=== PATIENT | male | born 1965 | race Two or more races ===

== ENCOUNTER 2024-11-13 10:18 | Emergency (ER) | payer OTHER ==
[~2024-11-13] VITALS: Ht 167.6 cm; Wt 83.8 kg
--- NOTE | 2024-11-13 10:38 | ECG ---
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
--- NOTE | 2024-11-13 11:11 | ED.PDOC ---
History of Present Illness HPI Comments 59-year-old male presents to the ER with prior medical history of stents, TIA, kidney stones, mi, fistula dialysis: Surgical history of back surgery, shoulder surgery, bilateral knee surgery and the chief complaint of generalized weakness. Patient reports on having dialysis 5 times a week and recently noticed that his abscess is very high and feels like it is going to pop. Patient states the after yesterday's dialysis treatment he felt very dizzy and informed his stitch welder for which was prescribed antibiotics. Patient did take the antibiotics yesterday states on on getting any better. Denies chills, fever, N/V/D, SOB, CP. No other associated symptoms, modifiers, recent injuries or sick contacts present at this time. Chief Complaint: General Weakness Time Seen by MD: 11:05 Reviewed Notes: Nurses Notes, Medications, Allergies Allergies: Coded Allergies: Iodine (Verified Allergy, Unknown, 11/13/24) Information Source: Patient Mode of Arrival: Ambulatory Severity: Moderate Timing: Hours Duration: Since onset, Hours Prehospital treatment: None Past Medical History PAST MEDICAL HISTORY: Kidney Stones, [place], TIA Past Medical History (Other): Stent placed Surgical History (Other): Back surgery, shoulder surgery, bilateral knee surgery Family History Family History: Reviewed,noncontributory to illness, Unknown Social History Smoker: Non-Smoker Alcohol: Denies ETOH Use Drugs: Denies Drug Use Lives In: Home Constitutional: reports: weakness; denies: chills, diaphoresis, fatigue, fever, malaise, sweats, others EENTM: denies: blurred vision, double vision, ear bleeding, ear discharge, ear drainage, ear pain, ear ringing, eye pain, eye redness, hearing loss, mouth pain, mouth swelling, nasal discharge, nose bleeding, nose congestion, nose pain, photophobia, tearing, throat pain, throat swelling, voice changes, others Respiratory: denies: cough, hemoptysis, orthopnea, SOB at rest, shortness of breath, SOB with excertion, stridor, wheezing, others Cardiovascular: denies: chest pain, dizzy spells, diaphoresis, Dyspnea on exertion, edema, irregular heart beat, left arm pain, lightheadedness, palpitations, PND, syncope, others Gastrointestinal: denies: abdomen distended, abdominal pain, blood streaked bowels, constipated, diarrhea, dysphagia, difficulty swallowing, hematemesis, melena, nausea, poor appetite, poor fluid intake, rectal bleeding, rectal pain, vomiting, others Genitourinary: denies: burning, dysuria, flank pain, frequency, hematuria, incontinence, penile discharge, penile sore, pain, testicle pain, testicle swelling, urgency, others Neurological: reports: dizziness; denies: fainting, headache, left sided numbness, left sided weakness, numbness, paresthesia, pre-existing deficit, right sided numbness, right sided weakness, seizure, speech problems, tingling, tremors, weakness, others Musculoskeletal: denies: back pain, gout, joint pain, joint swelling, muscle pain, muscle stiffness, neck pain, others Integumetry: denies: bruises, change in color, change in hair/nails, dryness, laceration, lesions, lumps, rash, wounds, others Allergic/Immunocompromised: denies: Difficulty Healing, Frequent Infections, Hives, Itching, others Hematologic/Lymphatic: denies: anemia, blood clots, easy bleeding, easy bruising, swollen glands, others Endocrine: denies: excessive hunger, excessive sweating, excessive thirst, excessive urination, flushing, intolerance to cold, intolerance to heat, unexplained weight gain, unexplained weight loss, others Psychiatric: denies: anxiety, bipolar disorder, depression, hopeless, panic disorder, schizophrenia, sleepless, suicidal, others All Other Systems: Reviewed and Negative Physical Exam General Appearance: No Apparent Distress, Normal HEENT: Normal ENT Inspection, Pharynx Normal, TMs Normal Neck: Full Range of Motion, Non-Tender, Normal, Normal Inspection Respiratory: Chest Non-Tender, Lungs Clear, No Accessory Muscle Use, No Respiratory Distress, Normal Breath Sounds Cardiovascular: No Edema, No JVD, No Murmur, No Gallop, Normal Peripheral Pulses, Regular Rate/Rhythm Breast Exam: Deferred Gastrointestinal: No Organomegaly, Non Tender, No Pulsatile Mass, Normal Bowel Sounds, Soft Genitalia: Deferred Pelvic: Deferred Rectal: Deferred Extremities: No calf tenderness, Normal capillary refill, Normal inspection, Normal range of motion, Non-tender, No pedal edema Musculoskeletal : Apperance: Normal Neurologic: Alert, 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 Was a procedure done?: No EKG EKG : Pulse Rate (adult): 70 [place]: Normal Cardiac Rhythm: NSR Block: None Hypertrophy: None ST: Normal Differential Dx Considerations may include: AV fistula problem X-Ray, Labs, Meds, VS Vital Signs Date Time Temp Pulse Resp B/P (MAP) Pulse Ox O2 Delivery O2 Flow Rate FiO2 11/13/24 11:11 70 11/13/24 10:20 98.5 83 16 148/88 98 98.5 Lab Test 11/13/24 11:01 Range/Units White Blood Count 5.3 4.4-10.8 10^3/uL Red Blood Count 3.76 L 4.5-5.90 10^6/uL Hemoglobin 12.0 L 13.5-17.5 g/dL Hematocrit 35.5 L 41.0-53.0 % Mean Corpuscular Volume 94.3 80.0-100.0 fL Mean Corpuscular Hemoglobin 31.9 28.0-32.0 pg Mean Corpuscular Hemoglobin Concent 33.8 32.0-36.0 g/dL Red Cell Distribution Width 13.5 11.8-14.3 % Platelet Count 231 140-450 10^3/uL Mean Platelet Volume 7.4 6.9-10.8 fL Neutrophils (%) (Auto) 70.2 37.0-80.0 % Lymphocytes (%) (Auto) 15.5 10.0-50.0 % Monocytes (%) (Auto) 9.1 0.0-12.0 % Eosinophils (%) (Auto) 4.4 0.0-7.0 % Basophils (%) (Auto) 0.8 0.0-2.0 % Neutrophils # (Auto) 3.8 1.6-8.6 10 ^3/uL Lymphocytes # (Auto) 0.8 0.4-5.4 10 ^3/uL Monocytes # (Auto) 0.5 0-1.3 10 ^3/uL Eosinophils # (Auto) 0.2 0-0.8 10 ^3/uL Basophils # (Auto) 0 0-0.2 10 ^3/uL Nucleated Red Blood Cells 0.0 % Sodium Level 136 136-145 mmol/L Potassium Level 4.0 3.5-5.1 mmol/L Chloride Level 95 L 98-107 mmol/L Carbon Dioxide Level 27 20-31 mmol/L Anion Gap 14 5-15 Blood Urea Nitrogen 54 H 9-23 mg/dL Creatinine 9.39 H 0.700-1.30 mg/dL Glomerular Filtration Rate Calc 6 >90 mL/min BUN/Creatinine Ratio 5.8 L 10.0-20.0 Serum Glucose 115 H 74-106 mg/dL Calcium Level 8.5 L 8.7-10.4 mg/dL Troponin I High Sensitivity 22 </=54 ng/L Time of 1ST Reevaluation: 11:35 Reevaluation 1ST: Unchanged Patient Education/Counseling: Diagnosis, Treatment, Prognosis Family Education/Counseling: Diagnosis, Treatment, Prognosis SEPSIS Sepsis Screen Date sepsis recognized/suspect: Nov 13, 2024 Time Sepsis recognized/suspect: 102 Recent Procedure: No On Antibiotic Therapy: Yes (STARTED YESTERDAY) Respiratory Rate >20: No Heart Rate >90: No Temp<36 C (96.8 F) or >38.3 C: No SBP <90 or MAP <65 mmHG: No New Acute Mental Status Change: No Is the patient on CPAP, BIPAP,: No Physician Orders Urinalysis (11/13/24 10:36) Chest Portable (11/13/24 10:36) Troponin-I Hs (11/13/24 11:36) Troponin-I Hs (11/13/24 13:36) Electrocardigram (11/13/24 11:36) Electrocardigram (11/13/24 13:36) Vital Signs Date Time Temp Pulse Resp B/P (MAP) Pulse Ox O2 Delivery O2 Flow Rate FiO2 11/13/24 11:11 70 11/13/24 10:20 98.5 83 16 148/88 98 98.5 Laboratory Tests Test 11/13/24 11:01 White Blood Count 5.3 10^3/uL (4.4-10.8) Departure 1 Departure Time of Disposition: 12:00 (Patient's metabolic disarray from not do dialysis secondary to AV fistula problem. We will admit patient for further workup and expert consultation.) Impression: Primary Impression: Dialysis AV fistula malfunction Qualified Codes: T82.590A - Other mechanical complication of surgically created arteriovenous fistula, initial encounter Additional Impressions: Near syncope Dizziness Disposition: ADMITTED INPATIENT Admit to: Med Surg Condition: Guarded Critical Care Note Critical Care Time?: No Stability Stability form required: No I personally scribed for OG UGALDE MD ([email or web address]) on 11/13/24 at 11:11. Electronically submitted by Ponce Bowman ([email or web address]). OG UGALDE MD Nov 13, 2024 11:11
[2024-11-13 11:19] LABS: Hematocrit 35.5 % (41.0-53.0); Hemoglobin 12.0 g/dL (13.5-17.5); Mean Corpuscular Hemoglobin 31.9 pg (28.0-32.0); Mean Corpuscular Volume 94.3 fL (80.0-100.0); Nucleated Red Blood Cells % 0.0 %
[2024-11-13 11:27] LABS: Potassium 4.0 mmol/L (3.5-5.1); Sodium 136 mmol/L (136-145)
--- NOTE | 2024-11-13 11:27 | DVH ---
INDICATION: weakness TECHNIQUE: Frontal view of the chest. COMPARISON: None FINDINGS: . The heart and mediastinal contours are grossly unremarkable. There is no evidence of pleural disea se. The lungs are clear. The bony structures of the chest are intact without fracture. IMPRESSION: 1. No evidence of acute disease.
[2024-11-13 11:28] LABS: Anion Gap 14 (5-15); Carbon Dioxide 27 mmol/L (20-31)
[2024-11-13 11:29] LABS: Calcium 8.5 mg/dL (8.7-10.4); Chloride 95 mmol/L (98-107)
[2024-11-13 11:33] LABS: BUN/Creatinine Ratio 5.8 (10.0-20.0)
[2024-11-13 11:35] LABS: Blood Urea Nitrogen 54 mg/dL (9-23); Glucose 115 mg/dL (74-106)
[2024-11-13 13:12] VITALS: PULSE 76; RESP 19; O2SAT 98
[2024-11-13 16:41] VITALS: BP 141/74; PULSE 62; RESP 18; TEMP 97.9; O2SAT 98
== END 2024-11-13 17:04 | disposition left against medical advice (07) ==
LOC: ER 10:18
DX: T82.590A Other mechanical complication of surgically created arteriovenous fistula, initial encounter (principal); R55 Syncope and collapse; I25.2 Old myocardial infarction; Z86.73 Personal history of transient ischemic attack (TIA), and cerebral infarction without residual deficits; Z87.442 Personal history of urinary calculi; Z88.8 Allergy status to other drugs, medicaments and biological substances; Y92.89 Other specified places as the place of occurrence of the external cause
CPT/HCPCS: 36415; 71045; 80048; 84484; 85025; 93005

== ENCOUNTER 2025-01-29 14:36 | Inpatient (IN) | payer MEDICARE, OTHER ==
[2025-01-29] VITALS (7 sets, daily range): BP systolic 170; BP diastolic 93; PULSE 70–83; RESP 14–20; TEMP 98; O2SAT 97–100
[~2025-01-29] VITALS: Ht 167.6 cm; Wt 83.8 kg
--- NOTE | 2025-01-29 14:48 | ECG ---
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
--- NOTE | 2025-01-29 15:21 | ED.PDOC ---
History of Present Illness HPI Comments 59 y/o M presents with c/c of intermittent shortness of breath x1 month. Significant history for DM, ESRD w/at-home dialysis 5x days/week, [place] - 2017, and TIA - 2011. Patient reports on-and-off difficulty breathing with no provoking factors. He reports on being short of breath, currently, and having associated nonradiating, midsternal chest discomfort, that he describes as a 'heartburn' sensation. Denies any extremity swelling, nausea, vomiting, cough, fever, or further acute symptoms. He mentions recent history of cold-symptoms 1x month ago, that has since resolved, with exception of lingering congestion. No endorsed further pertinent events or history. Time Seen by MD: 14:45 Reviewed Notes: Nurses Notes, Medications, Allergies Allergies: Coded Allergies: Iodine (Verified Allergy, Unknown, 11/13/24) Home Meds Reported Medications Lisinopril (Lisinopril) 20 Mg Tab, 1 TAB PO DAILY 01/29/25 Doxazosin Mesylate (Cardura Xl) 4 Mg Tab, 1 TAB PO DAILY 01/29/25 Tenapanor HCl (Xphozah) 30 Mg Tab, TAB PO 01/29/25 Doxazosin Mesylate (Doxazosin) 4 Mg Tab, 1 TAB PO DAILY 01/29/25 Sevelamer Carbonate (Sevelamer Carbonate) 800 Mg Tab, TAB PO 01/29/25 Buprenorphine (Buprenorphine) 10 Mcg/Hr Dis, 1 PATCH TOP QWEEKLY 01/29/25 Calcium Acetate (Phosphate Bin (Calcium Acetate) 667 Mg Cap, 1 CAP PO TID 01/29/25 Information Source: Patient Mode of Arrival: Ambulatory Severity: Moderate Timing: Weeks Duration: Intermittent Prehospital treatment: None Past Medical History PAST MEDICAL HISTORY: DM, ESRD (w/ESRD ), Kidney Stones, [place] (2017), TIA (2011) Surgical History (Other): left fistula back surgery with 11x screw placement Family History Family History: Reviewed,noncontributory to illness, Family hx of heart gail ([place]) Social History Smoker: Non-Smoker, Quit Greater Than 1 Year (2011) Alcohol: Denies ETOH Use Drugs: Denies Drug Use Lives In: Home Constitutional: denies: chills, diaphoresis, fatigue, fever, malaise, sweats, weakness, others EENTM: reports: nose congestion; denies: blurred vision, double vision, ear bleeding, ear discharge, ear drainage, ear pain, ear ringing, eye pain, eye redness, hearing loss, mouth pain, mouth swelling, nasal discharge, nose bleeding, nose pain, photophobia, tearing, throat pain, throat swelling, voice c hanges, others Respiratory: reports: shortness of breath; denies: cough, hemoptysis, orthopnea, SOB at rest, SOB with excertion, stridor, wheezing, others Cardiovascular: reports: chest pain; denies: dizzy spells, diaphoresis, Dyspnea on exertion, edema, irregular heart beat, left arm pain, lightheadedness, palpitations, PND, syncope, others Gastrointestinal: denies: abdomen distended, abdominal pain, blood streaked bowels, constipated, diarrhea, dysphagia, difficulty swallowing, hematemesis, melena, nausea, poor appetite, poor fluid intake, rectal bleeding, rectal pain, vomiting, others Genitourinary: denies: burning, dysuria, flank pain, frequency, hematuria, incontinence, penile discharge, penile sore, pain, testicle pain, testicle swelling, urgency, others Neurological: denies: dizziness, fainting, headache, left sided numbness, left sided weakness, numbness, paresthesia, pre-existing deficit, right sided numbness, right sided weakness, seizure, speech problems, tingling, tremors, weakness, others Musculoskeletal: denies: back pain, gout, joint pain, joint swelling, muscle pain, muscle stiffness, neck pain, others Integumetry: denies: bruises, change in color, change in hair/nails, dryness, laceration, lesions, lumps, rash, wounds, others Allergic/Immunocompromised: denies: Difficulty Healing, Frequent Infections, Hives, Itching, others Hematologic/Lymphatic: denies: anemia, blood clots, easy bleeding, easy bruising, swollen glands, others Endocrine: denies: excessive hunger, excessive sweating, excessive thirst, excessive urination, flushing, intolerance to cold, intolerance to heat, unexplained weight gain, unexplained weight loss, others Psychiatric: denies: anxiety, bipolar disorder, depression, hopeless, panic disorder, schizophrenia, sleepless, suicidal, others All Other Systems: Reviewed and Negative Physical Exam General Appearance: Moderate Distress HEENT: Pale [place] (L), Pale [place] (R), Pharynx Normal, TMs Normal Neck: Full Range of Motion, Non-Tender, Normal, Normal Inspection Respiratory: Chest Non-Tender, Lungs Clear, No Accessory Muscle Use, No Respiratory Distress, Normal Breath Sounds Cardiovascular: No Edema, No JVD, No Murmur, No Gallop, Normal Peripheral Pulses, Regular Rate/Rhythm Breast Exam: Deferred Gastrointestinal: No Organomegaly, Non Tender, No Pulsatile Mass, Normal Bowel Sounds, Soft Genitalia: Deferred Pelvic: Deferred Rectal: Deferred Extremities: No calf tenderness, Normal capillary refill, No pedal edema, Other (Left upper extremity with a fistula in place) Musculoskeletal : Apperance: Normal 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 Was a procedure done?: No EKG EKG : Pulse Rate (adult): 71 [place]: Normal Cardiac Rhythm: NSR Block: None Hypertrophy: LAE ST: Normal Differential Dx Considerations may include: AL, PE, URI, PNA, anxiety, viral, among others X-Ray, Labs, Meds, VS Vital Signs Date Time Temp Pulse Resp B/P (MAP) Pulse Ox O2 Delivery O2 Flow Rate FiO2 01/29/25 15:45 98.0 74 14 170/93 99 0.0 98.0 01/29/25 15:21 71 01/29/25 15:00 Room Air* 0 21 01/29/25 15:00 98.0 74 12 170/93 (118) 99 98.0 01/29/25 14:48 97.7 81 18 170/101 99 97.7 Lab Test 01/29/25 16:07 01/29/25 15:08 Range/Units Troponin I High Sensitivity Pending 27 </=54 ng/L White Blood Count 5.5 4.4-10.8 10^3/uL Red Blood Count 3.25 L 4.5-5.90 10^6/uL Hemoglobin 10.3 L 13.5-17.5 g/dL Hematocrit 30.3 L 41.0-53.0 % Mean Corpuscular Volume 93.3 80.0-100.0 fL Mean Corpuscular Hemoglobin 31.8 28.0-32.0 pg Mean Corpuscular Hemoglobin Concent 34.1 32.0-36.0 g/dL Red Cell Distribution Width 13.6 11.8-14.3 % Platelet Count 234 140-450 10^3/uL Mean Platelet Volume 8.2 6.9-10.8 fL Neutrophils (%) (Auto) 65.1 37.0-80.0 % Lymphocytes (%) (Auto) 18.1 10.0-50.0 % Monocytes (%) (Auto) 10.8 0.0-12.0 % Eosinophils (%) (Auto) 5.1 0.0-7.0 % Basophils (%) (Auto) 0.9 0.0-2.0 % Neutrophils # (Auto) 3.6 1.6-8.6 10 ^3/uL Lymphocytes # (Auto) 1.0 0.4-5.4 10 ^3/uL Monocytes # (Auto) 0.6 0-1.3 10 ^3/uL Eosinophils # (Auto) 0.3 0-0.8 10 ^3/uL Basophils # (Auto) 0.1 0-0.2 10 ^3/uL Nucleated Red Blood Cells 0.2 % D-Dimer, Quantitative 0.81 H 0.0-0.49 mg/L FEU Sodium Level 138 136-145 mmol/L Potassium Level 5.1 3.5-5.1 mmol/L Chloride Level 97 L 98-107 mmol/L Carbon Dioxide Level 29 20-31 mmol/L Anion Gap 12 5-15 Blood Urea Nitrogen 60 H 9-23 mg/dL Creatinine 9.37 H 0.700-1.30 mg/dL Glomerular Filtration Rate Calc 6 >90 mL/min BUN/Creatinine Ratio 6.4 L 10.0-20.0 Serum Glucose 96 74-106 mg/dL Hemoglobin A1c Pending Calcium Level 8.0 L 8.7-10.4 mg/dL Magnesium Level 2.5 1.6-2.6 mg/dL B-Type Natriuretic Peptide 294.09 0-100 pg/mL IV Hep-Lock was established The CBC shows anemia with a hemoglobin of 10.3 hematocrit of 30.3 The D-dimer is 0.81 The chemistry panel is within normal limits except for an elevated BUN of 60 and a creatinine of 9.37 The recommendation is that we get a V/Q scan in his patient because we can not get a CAT scan with IV contrast secondary to the patient's allergies to iodine as well as the patient's renal function The patient is being admitted at this time The chest x-ray shows: No sign of any abnormalities The patient is being admitted Images Reviewed?: Images reviewed and evaluated by me Time of 1ST Reevaluation: 15:15 Reevaluation 1ST: Unchanged Patient Education/Counseling: Diagnosis, Treatment, Prognosis Family Education/Counseling: No Family Present SEPSIS Sepsis Screen Physician Orders Electrocardigram (01/29/25 14:46) Electrocardigram (01/29/25 15:46) Electrocardigram (01/29/25 17:46) Chest Portable (01/29/25 14:48) Heplock Iv (01/29/25 14:48) Pulse Oximetry (01/29/25 14:48) Operating Room Aide (01/29/25 14:48) Blood Pressure (01/29/25 14:48) Troponin-I Hs (01/29/25 15:48) Troponin-I Hs (01/29/25 17:48) Urinalysis (01/29/25 15:38) Drug Screen (01/29/25 15:38) Albuterol Medneb (Ventolin Medneb) (01/29/25 18:00) Ipratropium Medneb (Atrovent Medneb) (01/29/25 18:00) Admit (01/29/25 15:41) Allergies (01/29/25 15:41) Code Status (01/29/25 15:41) Renal Standard(2gna,3gk,Lopho) (01/29/25 Dinner) Ondansetron Hcl (Zofran) (01/29/25 15:45) Complete Blood Count (01/30/25 04:00) Comprehensive Metabolic Panel (01/30/25 04:00) Acetaminophen Tablet (Tylenol Tablet) (01/29/25 15:45) Sequential Compression Device (01/29/25 ) Glucose Blood (Accu-Chek Comfort Curve T (01/29/25 17:00) Insulin R (Human) (Insulin R) (01/29/25 17:00) Dextrose 50% Syringe (01/29/25 15:45) Hemoglobin A1c (01/29/25 15:41) Hydralazine Injection (Apresoline Inject (01/29/25 15:45) Calcium Acetate Capsule (Phoslo Capsule) (01/29/25 22:00) (Nf) Buprenorphine (01/29/25 16:00) Doxazosin Mesyl Tablet (Cardura Tablet) (01/30/25 10:00) Sevelamer (Renagel) (01/29/25 18:00) Furosemide Injection (Lasix Injection) (01/30/25 10:00) Nm Vq Scan (01/29/25 15:56) Vital Signs Date Time Temp Pulse Resp B/P (MAP) Pulse Ox O2 Delivery O2 Flow Rate FiO2 01/29/25 15:45 98.0 74 14 170/93 99 0.0 98.0 01/29/25 15:21 71 01/29/25 15:00 Room Air* 0 21 01/29/25 15:00 98.0 74 12 170/93 (118) 99 98.0 01/29/25 14:48 97.7 81 18 170/101 99 97.7 Laboratory Tests Test 01/29/25 15:08 White Blood Count 5.5 10^3/uL (4.4-10.8) Departure 1 Departure Time of Disposition: 16:29 Impression: Primary Impression: Acute myocardial ischemia Disposition: 09 ADMITTED INPATIENT Admit to: [facility] Condition: Fair Critical Care Note Critical Care Time?: Yes (45 min-critical care time only) Stability Stability form required: Yes Unstable for transfer: Telemetry monitoring (Telemetry monitoring required), ED Physician Assesment (Clinical assesment) Heart Score Heart Score: Heart Score Response (Comments) Value History Moderate Suspicious 1 EKG Repolarization Disturb 1 Age 45-64 1 Risk Factors >3 or Hx ASHD 2 Troponin Normal limit 0 Total 5 I personally scribed for BALA VALDIVIA MD ([email or web address]) on 01/29/25 at 15:21. Electronically submitted by Heber Heaton ([email or web address]). BALA VALDIVIA MD Jan 29, 2025 15:21
--- NOTE | 2025-01-29 15:27 | DVH ---
CLINICAL INFORMATION: Shortness of breath. TECHNIQUE: Single AP portable chest radiograph was obtained. COMPARISON: XY CHEST PORTABLE on DOS: 11/13/24 FINDINGS: Lungs: Mild elevation of the right hemidiaphragm. Minimal atelectasis in the lung bases. No focal consolidation. No pneumothorax or pleural effusion. Cardiac: Heart size is within normal limits. Pulmonary vasculature: Unremarkable. Mediastinum/aaron: Unremarkable. Bones: No acute osseous abnormality identified. Other: Grossly stable appearance of the stimulator leads extending to the level of the midthoracic spine. IMPRESSION: No evidence of acute disease in the chest.
[2025-01-29 15:37] LABS: Hematocrit 30.3 % (41.0-53.0); Hemoglobin 10.3 g/dL (13.5-17.5); Mean Corpuscular Hemoglobin 31.8 pg (28.0-32.0); Mean Corpuscular Volume 93.3 fL (80.0-100.0); Nucleated Red Blood Cells % 0.2 %
[2025-01-29 15:44] LABS: Potassium 5.1 mmol/L (3.5-5.1); Sodium 138 mmol/L (136-145)
[2025-01-29 15:45] LABS: Anion Gap 12 (5-15); Carbon Dioxide 29 mmol/L (20-31)
[2025-01-29] MEDS ORDERED: ACETAMINOPHEN 325 MG TAB PO PRN ×2 (15:45→16:45)
[2025-01-29] MEDS ORDERED: DEXTROSE (50%) 50ML SYRG IV PRN ×2 (15:45→17:00)
[2025-01-29] MEDS ORDERED: hydrALAZINE HCL 20 MG/ML VL IV PRN (15:45)
[2025-01-29] MEDS ORDERED: ONDANSETRON HCL 4 MG/2 ML VIAL IV PRN ×2 (15:45→16:45)
[2025-01-29 15:50] LABS: BUN/Creatinine Ratio 6.4 (10.0-20.0); Glucose 96 mg/dL (74-106); Magnesium 2.5 mg/dL (1.6-2.6)
[2025-01-29 15:51] LABS: Blood Urea Nitrogen 60 mg/dL (9-23); Calcium 8.0 mg/dL (8.7-10.4); Chloride 97 mmol/L (98-107)
[2025-01-29] MEDS ORDERED: CALC667C PO (15:54)
[2025-01-29] MEDS ORDERED: LISI20TA56 PO (15:54)
[2025-01-29] MEDS ORDERED: TENA30TA PO (15:54)
[2025-01-29] MEDS ORDERED: SEVE800T10 PO (15:54)
[2025-01-29] MEDS ORDERED: BUPR10DI TOP (15:54)
[2025-01-29] MEDS ORDERED: DOXA1TAB41 PO (15:54)
[2025-01-29] MEDS ORDERED: DOXA4TAB PO (15:54)
[2025-01-29] MEDS ORDERED: NITROGLYCERIN 0.4 MG SL TAB SL PRN (16:45)
[2025-01-29] MEDS: ENOXAPARIN SOD 40 MG/0.4 ML SYRINGE SC SCH (17:00)
[2025-01-29] MEDS ORDERED: ACCU-CHEK COMFORT CURVE STRIP VI SCH (17:00)
[2025-01-29] MEDS: InsuLIN REG 1unit/0.01ml Soln (100units/ml) SC SCH (17:00)
[2025-01-29] MEDS ORDERED: InsuLIN REG 1unit/0.01ml Soln (100units/ml) SC SCH (17:00)
[2025-01-29] MEDS: ACCU-CHEK COMFORT CURVE STRIP VI SCH (17:10)
--- NOTE | 2025-01-29 17:13 | DVHHP2 ---
History of Present Illness Reason for Visit: Chest pain with shortness of breath History of Present Illness Jeromy Person is a 59-year-old male with past medical history of diabetes, end- stage renal disease on dialysis, nephrolithiasis, MS, TIA, left AV fistula, back surgery, and neuro stimulator who presents to the ED with chest pain and shortness of breath x1 month. Patient reports that the chest pain is 8/10 feels like a truck is running over his chest and intermittent in nature. He reports that there are no triggering or alleviating factors. He also reports that his demo coordinator is Dr. Collier in [place] and PCP was seen [address] Pavon in [place]. Patient is also reports that he saw a size mixer 2 months ago for itchiness on his forehead and notes that there has been red dots on his right hand lateral palm side as well as right big toe. He reports that the size mixer told him that it may be endocarditis and to get a checkup in the hospital. He reports that his size mixer and given him some cream with no relief. Patient reports that he also used a device to scrape off the skin on his right hand. Patient reports that his shortness of breath has been ongoing for the last month while at rest. 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 He reports that he was living in [place] for 24 years and moved over to [facility] for 1 year and now lives in [place] since July. Patient reports that he uses a front wheel walker to ambulate and lives at home with his fiancee. Patient also reports that he is compliant with his edications. Patient also reports that he has a neurostimulator and it needs to be turned off with a remote if MRI is required. Patient also reports that his labs were abnormal, reports it was his phos. Patient denies any recent trauma or injury, recent sick contacts, recent travels, recent ingestion of spoiled food, fever, chills, lightheadedness, weakness, dizziness, abdominal pain, nausea, vomiting, diarrhea, or urinary symptoms. 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 Dad from MS.) Smoke: No ALCOHOL: none Drugs: None Lives: with Family Domestic Violence: Neg Review of Systems Respiratory: Shortness of breath Cardiovascular: Chest Pain Allergies: Coded Allergies: Iodine (Verified Allergy, Unknown, 11/13/24) Medications Current Medications Medications Dose Ordered Sig/Leah Route Start Time Stop Time Status Last Admin Dose Admin Albuterol 2.5 mg Q4HWA NEB 01/29/25 18:00 Ipratropium [place] 0.5 mg Q4HWA NEB 01/29/25 18:00 Ondansetron HCl 4 mg Q4HP PRN IV 01/29/25 15:45 Acetaminophen 650 mg Q6HP PRN PO 01/29/25 15:45 Diagnostic Test (Pha) 1 strip ACHS 01/29/25 17:00 Insulin Human Regular ACHS SC 01/29/25 17:00 Dextrose 50 ml UD PRN IV 01/29/25 15:45 Hydralazine HCl 10 mg Q6HP PRN IV 01/29/25 15:45 Calcium Acetate 667 mg TID PO 01/29/25 22:00 Patient Own Medication 1 patch QWEEKLY TOP 01/29/25 16:00 Doxazosin Mesylate 4 mg DAILY PO 01/30/25 10:00 Sevelamer HCl 800 mg TIDWM PO 01/29/25 18:00 Furosemide 40 mg DAILY IV 01/30/25 10:00 Exam Vital Signs Vital Signs Date Time Temp Pulse Resp B/P (MAP) Pulse Ox O2 Delivery O2 Flow Rate FiO2 01/29/25 15:45 98.0 74 14 170/93 99 0.0 98.0 01/29/25 15:00 Room Air* 21 General Appearance: Alert, Oriented X3, Cooperative, No acute distress HEENT: Atraumatic, PERRLA, EOMI, Mucous membr. moist/pink Respiratory: Normal air movement Cardiovascular: Regular rate, Normal S1, Normal S2 Abdominal: Normal bowel sounds, Soft Extremities: No clubbing, No cyanosis, No edema Neuro: Normal speech, Strength at 5/5 X4 ext, Normal tone, Sensation intact Psych/Mental Status: Mental status NL, Mood NL Labs/Xrays Labs Test 01/29/25 16:07 01/29/25 15:08 Range/Units White Blood Count 5.5 4.4-10.8 10^3/uL Red Blood Count 3.25 L 4.5-5.90 10^6/uL Hemoglobin 10.3 L 13.5-17.5 g/dL Hematocrit 30.3 L 41.0-53.0 % Mean Corpuscular Volume 93.3 80.0-100.0 fL Mean Corpuscular Hemoglobin 31.8 28.0-32.0 pg Mean Corpuscular Hemoglobin Concent 34.1 32.0-36.0 g/dL Red Cell Distribution Width 13.6 11.8-14.3 % Platelet Count 234 140-450 10^3/uL Mean Platelet Volume 8.2 6.9-10.8 fL Neutrophils (%) (Auto) 65.1 37.0-80.0 % Lymphocytes (%) (Auto) 18.1 10.0-50.0 % Monocytes (%) (Auto) 10.8 0.0-12.0 % Eosinophils (%) (Auto) 5.1 0.0-7.0 % Basophils (%) (Auto) 0.9 0.0-2.0 % Neutrophils # (Auto) 3.6 1.6-8.6 10 ^3/uL Lymphocytes # (Auto) 1.0 0.4-5.4 10 ^3/uL Monocytes # (Auto) 0.6 0-1.3 10 ^3/uL Eosinophils # (Auto) 0.3 0-0.8 10 ^3/uL Basophils # (Auto) 0.1 0-0.2 10 ^3/uL Nucleated Red Blood Cells 0.2 % D-Dimer, Quantitative 0.81 H 0.0-0.49 mg/L FEU Sodium Level 138 136-145 mmol/L Potassium Level 5.1 3.5-5.1 mmol/L Chloride Level 97 L 98-107 mmol/L Carbon Dioxide Level 29 20-31 mmol/L Anion Gap 12 5-15 Blood Urea Nitrogen 60 H 9-23 mg/dL Creatinine 9.37 H 0.700-1.30 mg/dL Glomerular Filtration Rate Calc 6 >90 mL/min BUN/Creatinine Ratio 6.4 L 10.0-20.0 Serum Glucose 96 74-106 mg/dL Hemoglobin A1c 5.3 <5.7 % A1C Calcium Level 8.0 L 8.7-10.4 mg/dL Magnesium Level 2.5 1.6-2.6 mg/dL B-Type Natriuretic Peptide 294.09 0-100 pg/mL CLINICAL INFORMATION: Shortness of breath. TECHNIQUE: Single AP portable chest radiograph was obtained. COMPARISON: XY CHEST PORTABLE on DOS: 11/13/24 FINDINGS: Lungs: Mild elevation of the right hemidiaphragm. Minimal atelectasis in the lung bases. No focal consolidation. No pneumothorax or pleural effusion. Cardiac: Heart size is within normal limits. Pulmonary vasculature: Unremarkable. Mediastinum/aaron: Unremarkable. Bones: No acute osseous abnormality identified. Other: Grossly stable appearance of the stimulator leads extending to the level of the midthoracic spine. IMPRESSION: No evidence of acute disease in the chest. SEPSIS Sepsis Screen Date sepsis recognized/suspect: Jan 29, 2025 Time Sepsis recognized/suspect: 1447 Recent Procedure: No On Antibiotic Therapy: No Respiratory Rate >20: No Heart Rate >90: No Temp<36 C (96.8 F) or >38.3 C: No SBP <90 or MAP <65 mmHG: No New Acute Mental Status Change: No Is the patient on CPAP, BIPAP,: No Physician Orders Electrocardigram (01/29/25 14:46) Electrocardigram (01/29/25 15:46) Electrocardigram (01/29/25 17:46) Chest Portable (01/29/25 14:48) Heplock Iv (01/29/25 14:48) Pulse Oximetry (01/29/25 14:48) Sewer Separation Designer (01/29/25 14:48) Blood Pressure (01/29/25 14:48) Troponin-I Hs (01/29/25 15:48) Troponin-I Hs (01/29/25 17:48) Urinalysis (01/29/25 15:38) Drug Screen (01/29/25 15:38) Albuterol Medneb (Ventolin Medneb) (01/29/25 18:00) Ipratropium Medneb (Atrovent Medneb) (01/29/25 18:00) Admit (01/29/25 15:41) Allergies (01/29/25 15:41) Code Status (01/29/25 15:41) Renal Standard(2gna,3gk,Lopho) (01/29/25 Dinner) Ondansetron Hcl (Zofran) (01/29/25 15:45) Complete Blood Count (01/30/25 04:00) Comprehensive Metabolic Panel (01/30/25 04:00) Acetaminophen Tablet (Tylenol Tablet) (01/29/25 15:45) Sequential Compression Device (01/29/25 ) Glucose Blood (Accu-Chek Comfort Curve T (01/29/25 17:00) Insulin R (Human) (Insulin R) (01/29/25 17:00) Dextrose 50% Syringe (01/29/25 15:45) Hydralazine Injection (Apresoline Inject (01/29/25 15:45) Calcium Acetate Capsule (Phoslo Capsule) (01/29/25 22:00) (Nf) Buprenorphine (01/29/25 16:00) Doxazosin Mesyl Tablet (Cardura Tablet) (01/30/25 10:00) Sevelamer (Renagel) (01/29/25 18:00) Furosemide Injection (Lasix Injection) (01/30/25 10:00) Nm Vq Scan (01/29/25 15:56) Vital Signs Date Time Temp Pulse Resp B/P (MAP) Pulse Ox O2 Delivery O2 Flow Rate FiO2 01/29/25 15:45 98.0 74 14 170/93 99 0.0 98.0 01/29/25 15:21 71 01/29/25 15:00 Room Air* 0 21 01/29/25 15:00 98.0 74 12 170/93 (118) 99 98.0 01/29/25 14:48 97.7 81 18 170/101 99 97.7 Laboratory Tests Test 01/29/25 15:08 White Blood Count 5.5 10^3/uL (4.4-10.8) Assessment/Plan Assessment/Plan Assessment Chest pain rule out ACS ? Endocarditis Fluid overload causing dyspnea Skin lesion on right big toe and right lateral hand History of neurostimulator History of diabetes History of end-stage renal disease on dialysis History of nephrolithiasis History of MS in 2018 History of TIA in 2012 History of left AV fistula History of back surgery with 11 screws Plan Admit to tele Antiemetics Pain management Aspirin + statin D-dimer Trop Chest x-ray BNP Diurese EKG Mag level Phos level ACS workup UA UDS Lipid panel Free T4 TSH Echo ordered Hemoglobin A1c ISS and Accu-Cheks Lactic Blood cultures Duo nebs V/Q scan Diet Home medications reconciled DVT prophylaxis-Lovenox PUD prophylaxis-not indicated no history of GERD or GI bleed Discussed plan of care with patient, patient's spouse, and nurse Wound consult Nephrology consult Cardiology consult [id number] Preventive counseling healthy eating habits, physical activity, and regular checkups Plan discussed with: Patient My Orders Orders - BING LOVE Procedure Category Date Status Time Urinalysis LAB 01/29/25 Logged 15:38 Drug Screen LAB 01/29/25 Logged 15:38 Albuterol Medneb PHA 01/29/25 In Process (Ventolin Medneb) 18:00 Ipratropium Medneb PHA 01/29/25 In Process (Atrovent Medneb) 18:00 Admit ADMIT 01/29/25 Transmitted 15:41 Allergies ROBERTA 01/29/25 In Process 15:41 Code Status CODE 01/29/25 Transmitted 15:41 Renal DIET 01/29/25 Transmitted Standard(2gna,3gk,Lopho) Dinner Ondansetron Hcl PHA 01/29/25 In Process (Zofran) 15:45 Complete Blood Count LAB 01/30/25 Verified 04:00 Comprehensive LAB 01/30/25 Verified Metabolic Panel 04:00 Acetaminophen Tablet PHA 01/29/25 In Process (Tylenol Tablet) 15:45 Sequential ROBERTA 01/29/25 In Process Compression Device Glucose Blood PHA 01/29/25 In Process (Accu-Chek Comfort 17:00 Insulin R (Human) PHA 01/29/25 In Process (Insulin R) 17:00 Dextrose 50% Syringe PHA 01/29/25 In Process 15:45 Hydralazine Injection PHA 01/29/25 In Process (Apresoline Inject 15:45 Calcium Acetate PHA 01/29/25 In Process Capsule (Phoslo 22:00 (Nf) Buprenorphine PHA 01/29/25 In Process 16:00 Doxazosin Mesyl PHA 01/30/25 In Process Tablet (Cardura 10:00 Sevelamer (Renagel) PHA 01/29/25 In Process 18:00 Furosemide Injection PHA 01/30/25 In Process (Lasix Injection) 10:00 Nm Vq Scan NM 01/29/25 Logged 15:56 Date of Service: Jan 29, 2025 Billing Provider: BING LOVE Common Visit Codes: [id number] INP/OBS CARE (HIGH) Secondary Visit Codes: [id number] COUNSELING IND BING LOVE Jan 29, 2025 17:13
[2025-01-29] MEDS: MORPHINE SULFATE 4 MG/ML SYR/VIAL IV PRN (17:17)
[2025-01-29] MEDS: MORPHINE SULFATE 4 MG/ML SYR/VIAL ONE (17:17)
[2025-01-29] MEDS: SEVELAMER 800 MG TAB PO ONE (17:26)
[2025-01-29] MEDS: SEVELAMER 800 MG TAB PO SCH (17:32)
[2025-01-29] MEDS: IPRATROPIUM BROM 0.5 MG/2.5ML INH SOL NEB SCH (18:15)
[2025-01-29] MEDS: ALBUTEROL SULF 2.5 MG/0.5ML(0.5%) NEB SOLN ONE (18:15)
[2025-01-29] MEDS: ALBUTEROL SULF 2.5 MG/0.5ML(0.5%) NEB SOLN NEB SCH (18:15)
[2025-01-29] MEDS: IPRATROPIUM BROM 0.5 MG/2.5ML INH SOL ONE (18:15)
[2025-01-29] MEDS: ATORVASTATIN 20 MG TAB ONE (21:41)
[2025-01-29] MEDS: ATORVASTATIN 20 MG TAB PO SCH (21:48)
[2025-01-29] MEDS: CALCIUM ACETATE 667 MG CAP PO SCH (21:48)
[2025-01-29] MEDS: hydrALAZINE HCL 20 MG/ML VL IV PRN (23:43)
[2025-01-30] VITALS (19 sets, daily range): BP systolic 120–151; BP diastolic 76–89; PULSE 70–102; RESP 16–22; TEMP 97.5–98.7; O2SAT 96–100
--- NOTE | 2025-01-30 06:19 | ECG ---
[facility] Test Date: 2025-01-29 Test Time: 15:46:15 Pat Name: EUGENE LEON Department: Room: 0271T A Gender: M Guest Advisor: BHARATHI : [id number] Requested By: BALA VALDIVIA Order Number: [id number] Reading MD: Tomas Grant Measurements Intervals [place] Rate: 71 P: 18 LA: 151 QRS: 15 QRSD: 103 T: 80 QT: 465 QTc: 506 Interpretive Statements Sinus rhythm Minimal ST depression, inferior leads Prolonged QT interval Artifact in lead(s) II,III,aVR,aVL,aVF,V1,V2,V4,V5,V6 Electronically Signed On 01-30-2025 10:37:26 PST by Tomas Grant Please click the below link to view image of tracing.
[2025-01-30 07:10] LABS: Hematocrit 29.8 % (41.0-53.0); Hemoglobin 10.0 g/dL (13.5-17.5); Mean Corpuscular Hemoglobin 31.5 pg (28.0-32.0); Mean Corpuscular Volume 94.0 fL (80.0-100.0); Nucleated Red Blood Cells % 0.0 %
[2025-01-30 07:31] LABS: Albumin 4.0 g/dL (3.2-4.8); Anion Gap 15 (5-15); BUN/Creatinine Ratio 6.4 (10.0-20.0); Carbon Dioxide 25 mmol/L (20-31); Chloride 100 mmol/L (98-107); Glucose 98 mg/dL (74-106); Potassium 4.6 mmol/L (3.5-5.1); Sodium 140 mmol/L (136-145); Total Protein 6.5 g/dL (5.7-8.2)
[2025-01-30 07:46] LABS: Alanine Aminotransferase < 9 U/L (7-40); Alkaline Phosphatase 43 U/L (46-116); Bilirubin, Total 0.2 mg/dL (0.2-1.0); Blood Urea Nitrogen 64 mg/dL (9-23); Calcium 7.8 mg/dL (8.7-10.4)
[2025-01-30 07:48] LABS: Magnesium 2.4 mg/dL (1.6-2.6)
[2025-01-30 07:50] LABS: Cholesterol 178.0 mg/dL (< 200)
[2025-01-30 07:51] LABS: HDL Cholesterol 38.0 mg/dL (40-59); Triglycerides 165.0 mg/dL (< 150)
[2025-01-30 08:13] LABS: Urine Protein, UAD 1+ (Negative)
[2025-01-30 08:22] LABS: Opiate Scree,Urine Neg (NEGATIVE)
[2025-01-30 08:23] LABS: Amphetamine Screen, Urine Neg (NEGATIVE); Barbiturate Scree,Urine Neg (NEGATIVE); Benzodiazephine Screen, Urine Neg (NEGATIVE); Cannabinoid Screen, Urine Neg (NEGATIVE); Cocaine Screen, Urine Neg (NEGATIVE); Phencyclidine Screen, Urine Neg (NEGATIVE)
[2025-01-30] MEDS ORDERED: LISINOPRIL 20 MG TAB PO SCH (10:00)
--- NOTE | 2025-01-30 11:00 | DVHPN2 ---
Reviewed: Care Plan, H&P, Labs, Medications, Previous Orders, Radiology Changes from previous H/P or p: No Changes Cardiovascular: Chest Pain Respiratory: Shortness of breath Objective Vitals Vital Signs Date Time Temp Pulse Resp B/P (MAP) Pulse Ox O2 Delivery O2 Flow Rate FiO2 01/30/25 09:26 71 16 100 01/30/25 09:20 Room Air* 0 21 01/30/25 09:12 151/89 01/30/25 09:00 98.7 98.7 Intake/Output Intake and Output 01/30/25 07:00 Intake Total 0 ml Balance 0 ml Intake Oral 0 ml # Voids 1 Medications Current Medications Medications Dose Ordered Sig/Leah Route Start Time Stop Time Status Last Admin Dose Admin Albuterol 2.5 mg Q4HWA [facility] 01/29/25 18:00 01/30/25 09:20 2.5 MG Ipratropium [place] 0.5 mg Q4HWA NEB 01/29/25 18:00 01/30/25 09:20 0.5 MG Ondansetron HCl 4 mg Q4HP PRN IV 01/29/25 15:45 Hold Calcium Acetate 667 mg TID PO 01/29/25 22:00 01/30/25 09:11 667 MG Patient Own Medication 1 patch QWEEKLY TOP 01/29/25 16:00 Doxazosin Mesylate 4 mg DAILY PO 01/30/25 10:00 Sevelamer HCl 800 mg TIDWM PO 01/29/25 18:00 01/29/25 17:32 800 MG Furosemide 40 mg DAILY IV 01/30/25 10:00 Aspirin 81 mg DAILY PO 01/30/25 10:00 Atorvastatin Calcium 40 mg HS PO 01/29/25 22:00 01/29/25 21:48 40 MG Morphine Sulfate 2 mg Q30MP PRN IV 01/29/25 16:45 01/30/25 09:12 2 MG Acetaminophen 650 mg Q6HP PRN PO 01/29/25 16:45 Nitroglycerin 0.4 mg Q5MINP PRN SL 01/29/25 16:45 Diagnostic Test (Pha) 1 strip ACHS 01/29/25 17:00 01/30/25 06:29 1 STRIP Insulin Human Regular ACHS SC 01/29/25 17:00 Dextrose 50 ml UD PRN IV 01/29/25 17:00 Enoxaparin Sodium 40 mg DAILY SC 01/29/25 17:00 01/29/25 17:00 40 MG Hydralazine HCl 10 mg Q6HP PRN IV 01/29/25 23:00 01/29/25 23:43 10 MG Laboratory Results Laboratory Tests 01/30/25 05:25 Chemistry Test 01/29/25 15:08 01/30/25 05:25 Calcium Level 8.0 mg/dL (8.7-10.4) L 7.8 mg/dL (8.7-10.4) L Magnesium Level 2.5 mg/dL (1.6-2.6) 2.4 mg/dL (1.6-2.6) Albumin 4.0 g/dL (3.2-4.8) Phosphorus Level 5.9 mg/dL (2.4-5.1) H Total Protein 6.5 g/dL (5.7-8.2) Coagulation Test 01/29/25 15:08 D-Dimer, Quantitative 0.81 mg/L FEU (0.0-0.49) H Lipid panel Test 01/30/25 05:25 Cholesterol Level 178 mg/dL (< 200) HDL Cholesterol 38 mg/dL (40-59) L Triglycerides Level 165 mg/dL (< 150) H Cardiac Markers Test 01/29/25 15:08 B-Type Natriuretic Peptide 294.09 pg/mL (0-100) LFT Test 01/30/25 05:25 Alanine Aminotransferase (ALT) < 9 U/L (7-40) Alkaline Phosphatase 43 U/L (46-116) L Aspartate Amino Transferase (AST) < 8 U/L (13-40) L Total Bilirubin 0.2 mg/dL (0.2-1.0) HgA1c, TSH Test 01/29/25 15:08 Hemoglobin A1c 5.3 % A1C (<5.7) Thyroid Stimulating Hormone (TSH) 2.27 uIU/mL (0.55-4.78) Urinalysis Test 01/30/25 06:00 Urine Color Colorless (Yellow) Urine Clarity Clear (Clear) Urine pH 7.5 (5.0-9.0) Urine Specific [place] 1.006 (1.001-1.035) Urine Protein 1+ (Negative) H Urine Ketones Negative (Negative) Urine Blood Negative /uL (Negative) Urine Nitrite Negative (Negative) Urine Bilirubin Negative (Negative) Urine Urobilinogen Normal mg/dL (Negative) Urine Leukocyte Esterase Negative /uL (Negative) Urine RBC <1 /hpf (0 - 3) Urine Microscopic WBC 1 /HPF (0-3) Urine Squamous Epithelial Cells None seen /hpf (<5) Urine Bacteria None seen /hpf (None Seen) Urine Glucose 1+ mg/dL (Normal) H Labs and/or images reviewed: Labs reviewed by me, Image(s) reviewed by me Assessment/Plan Assessment/Plan Chest pain rule out ACS , troponin negative, treatment per ACS protocol, consult for Cardiology Acute respiratory failure secondary to fluid overload Uncontrolled diabetes: Insulin sliding scale ESRD on hemodialysis: Consult for Dr. 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
[2025-01-30] MEDS: DOXAZOSIN MESYL 2 MG TAB PO SCH (12:28)
[2025-01-30] MEDS: FUROSEMIDE 40 MG/4 ML VIAL IV SCH (12:29)
--- NOTE | 2025-01-30 12:37 | DVHINCON2 ---
Date Seen: Jan 30, 2025 Referring Physician MD Bayron Reason for Consultation Rule out infective endocarditis History of Present Illness This is a 59-year-old male patient who presents to the emergency room with chief complaint of shortness of breath and rash. The patient states that symptoms began approximately two months ago with lesions on his right foot. He reports going to a resistance welding machine operator who gave him an ointment told him he just had a rash. Approximately one month ago, the patient reports he started experiencing intermittent shortness of breath. Along with the shortness of breath, he began noticing lesions on his right hand. He went back to the resistance welding machine operator who prescribed lotion and told him to keep the area moisturized. After consulting with his primary care physician and sr. social media & mobile manager, he was told to come to the emergency room to be evaluated for infective endocarditis given the characteristics of the lesions on his hand and foot. He also reports intermittent fevers at home. He denies any recent dental work, but states that he did have tooth pain a few weeks ago and did not go see a dentist. He also mentioned intermittent chest pain. He describes it as unprovoked, intermittent, pressure-like in nature, substernal and nonradiating. Associated symptoms include shortness of breath. Initial twelve lead electrocardiogram reveals normal sinus rhythm without any significant ST segment changes. Initial trop onin level of 27ng/L flat trend thereafter. Significant past medical history includes hypertension, dyslipidemia, myocardial infarction in 2019, end-stage renal disease on hemodialysis with left arm fistula, TIA, and obesity. The patient reports seeing a music executive in the outpatient setting where he underwent a stress test and echocardiogram and was told that everything was nor mal. He has not followed up with a music executive since 2019. Past Medical History Past medical history reviewed. No other significant than mentioned above. Past Surgical History Multiple back surgeries with neurostimulator implantation Left arm fistula Right shoulder repair Bilateral meniscus repair Family History: Cerebrovascular accident (CVA) G8 MOTHER, , Age: 60 years and older G8 FATHER, , Age: 40's - 50 Diabetes mellitus G8 MOTHER, , Age: 60 years and older FH: heart disease G8 MOTHER, , Age: 60 years and older Family History Family history reviewed. Social History Patient has a 20 pack-year history, quit smoking in 2011 Denies any illicit drug use Reports occasional social alcohol use Allergies: Coded Allergies: Iodine (Verified Allergy, Unknown, 11/13/24) Home Meds Reported Medications Lisinopril (Lisinopril) 20 Mg Tab, 1 TAB PO DAILY 01/29/25 Doxazosin Mesylate (Cardura Xl) 4 Mg Tab, 1 TAB PO DAILY 01/29/25 Tenapanor HCl (Xphozah) 30 Mg Tab, TAB PO 01/29/25 Doxazosin Mesylate (Doxazosin) 4 Mg Tab, 1 TAB PO DAILY 01/29/25 Sevelamer Carbonate (Sevelamer Carbonate) 800 Mg Tab, TAB PO 01/29/25 Buprenorphine (Buprenorphine) 10 Mcg/Hr Dis, 1 PATCH TOP QWEEKLY 01/29/25 Calcium Acetate (Phosphate Bin (Calcium Acetate) 667 Mg Cap, 1 CAP PO TID 01/29/25 Home Meds Home medications reviewed. Current Medications Current Medications Medications (Trade) Dose Ordered Sig/Leah Route PRN Reason Start Time Stop Time Status Last Admin Albuterol (Ventolin Medneb) 2.5 mg Q4HWA [facility] 01/29/25 18:00 01/30/25 09:20 Ipratropium [place] (Atrovent Medneb) 0.5 mg Q4HWA [facility] 01/29/25 18:00 01/30/25 09:20 Ondansetron HCl (Zofran) 4 mg Q4HP PRN IV NAUSEA / VOMITING 01/29/25 15:45 Hold Acetaminophen (Tylenol Tablet) 650 mg Q6HP PRN PO PAIN SCALE 1-3 OR TEMP>100.4 01/29/25 15:45 01/29/25 16:52 DC Diagnostic Test (Pha) (Accu-Chek Comfort Curve T) 1 strip ACHS 01/29/25 17:00 01/29/25 16:57 DC Insulin Human Regular (InsuLIN R) ACHS SC 01/29/25 17:00 01/29/25 16:57 DC Dextrose 50 ml UD PRN IV Blood Sugar LESS THAN 60 01/29/25 15:45 01/29/25 16:57 DC Hydralazine HCl (Apresoline Injection) 10 mg Q6HP PRN IV SBP>150 01/29/25 15:45 01/29/25 22:53 DC Calcium Acetate (Phoslo Capsule) 667 mg TID PO 01/29/25 22:00 01/30/25 09:11 Lisinopril (Zestril Tablet) 20 mg DAILY PO 01/30/25 10:00 01/29/25 15:58 DC Patient Own Medication 1 patch QWEEKLY TOP 01/29/25 16:00 Patient Own Medication 1 tab DAILY PO 01/30/25 10:00 01/29/25 16:07 DC Doxazosin Mesylate (Cardura Tablet) 4 mg DAILY PO 01/30/25 10:00 Sevelamer HCl (Renagel) 800 mg TIDWM PO 01/29/25 18:00 01/29/25 17:32 Furosemide (Lasix Injection) 40 mg DAILY IV 01/30/25 10:00 Aspirin 81 mg DAILY PO 01/30/25 10:00 Atorvastatin Calcium (Lipitor) 40 mg HS PO 01/29/25 22:00 01/29/25 21:48 Morphine Sulfate 2 mg Q30MP PRN IV FOR CHEST PAIN 01/29/25 16:45 01/30/25 09:12 Acetaminophen (Tylenol Tablet) 650 mg Q6HP PRN PO MILD PAIN (1-3 PAIN SCALE) 01/29/25 16:45 Nitroglycerin (Ntrostat Sublingual) 0.4 mg Q5MINP PRN SL FOR CHEST PAIN 01/29/25 16:45 Ondansetron HCl (Zofran) 4 mg Q4HP PRN IV NAUSEA / VOMITING 01/29/25 16:45 01/29/25 21:21 DC Diagnostic Test (Pha) (Accu-Chek Comfort Curve T) 1 strip ACHS 01/29/25 17:00 01/30/25 06:29 Insulin Human Regular (InsuLIN R) ACHS SC 01/29/25 17:00 Dextrose 50 ml UD PRN IV Blood Sugar LESS THAN 60 01/29/25 17:00 Enoxaparin Sodium (Lovenox) 40 mg DAILY SC 01/29/25 17:00 01/29/25 17:00 Hydralazine HCl (Apresoline Injection) 10 mg Q6HP PRN IV SBP>150 01/29/25 23:00 01/29/25 23:43 Review of Systems Constitutional: No symptom reported Ears, Nose, & Throat: No symptom reported Eyes: No symptom reported Neurological: No symptoms reported Pulmonary/Respiratory: Shortness of breath Cardiovascular: No symptom reported Gastrointestinal: No symptom reported Genitourinary: No symptom reported Musculoskeletal: No symptom reported Skin: No symptom reported Psychiatric: No symptom reported Endocrine: No symptom reported Hematologic/Lymphatic: No symptom reported Vital Signs Vital Signs Date Time Temp Pulse Resp B/P (MAP) Pulse Ox O2 Delivery O2 Flow Rate FiO2 01/30/25 09:26 71 16 100 01/30/25 09:20 Room Air* 0 21 01/30/25 09:12 151/89 01/30/25 09:00 98.7 98.7 Physical Exam General Appearance: Cooperative. Well-developed. Well-nourished. No acute distress. Pulmonary/Respiratory: Clear, bilateral breaths sounds. Cardiovascular/Chest: Regular rate and rhythm. Peripheral Pulses: 2+ Radial (R). 2+ Radial (L). 2+ Pedal (R). 2+ Pedal (L) Abdominal Exam: Normal bowel sounds. Ankle Exam: Negative ankle edema Lower extremities: Negative lower extremity edema Neuro/Mental Status: A/OX4, coherent. Thoughts/Psych: Normal thought pattern. Appropriate mood and affect. Good judgment and insight. Appearance: No acute distress. Skin Exam: Flat, round, red lesions to right hand near finger nails. Splinter hemorrhage noted on nails. Skin warm and dry Labs/Diagnostic Data Labs Test 01/30/25 06:00 01/30/25 05:25 01/29/25 22:36 01/29/25 17:50 Range/Units Urine Color Colorless Yellow Urine Clarity Clear Clear Urine pH 7.5 5.0-9.0 Urine Specific [place] 1.006 1.001-1.035 Urine Protein 1+ H Negative Urine Ketones Negative Negative Urine Blood Negative Negative /uL Urine Nitrite Negative Negative Urine Bilirubin Negative Negative Urine Urobilinogen Normal Negative mg/dL Urine Leukocyte Esterase Negative Negative /uL Urine RBC <1 0 - 3 /hpf Urine Microscopic WBC 1 0-3 /HPF Urine Squamous Epithelial Cells None seen <5 /hpf Urine Bacteria None seen None Seen /hpf Urine Glucose 1+ H Normal mg/dL Urine Opiates Screen Neg NEGATIVE Urine Fentanyl Screen Neg NEGATIVE Urine Barbiturates Screen Neg NEGATIVE Urine Phencyclidine Screen Neg NEGATIVE Urine Amphetamines Screen Neg NEGATIVE Urine Benzodiazepines Screen Neg NEGATIVE Urine Cocaine Screen Neg NEGATIVE Urine Cannabinoids Screen Neg NEGATIVE White Blood Count 6.7 4.4-10.8 10^3/uL Red Blood Count 3.17 L 4.5-5.90 10^6/uL Hemoglobin 10.0 L 13.5-17.5 g/dL Hematocrit 29.8 L 41.0-53.0 % Mean Corpuscular Volume 94.0 80.0-100.0 fL Mean Corpuscular Hemoglobin 31.5 28.0-32.0 pg Mean Corpuscular Hemoglobin Concent 33.5 32.0-36.0 g/dL Red Cell Distribution Width 13.9 11.8-14.3 % Platelet Count 192 140-450 10^3/uL Mean Platelet Volume 7.9 6.9-10.8 fL Neutrophils (%) (Auto) 79.0 37.0-80.0 % Lymphocytes (%) (Auto) 10.7 10.0-50.0 % Monocytes (%) (Auto) 7.7 0.0-12.0 % Eosinophils (%) (Auto) 2.1 0.0-7.0 % Basophils (%) (Auto) 0.5 0.0-2.0 % Neutrophils # (Auto) 5.3 1.6-8.6 10 ^3/uL Lymphocytes # (Auto) 0.7 0.4-5.4 10 ^3/uL Monocytes # (Auto) 0.5 0-1.3 10 ^3/uL Eosinophils # (Auto) 0.1 0-0.8 10 ^3/uL Basophils # (Auto) 0 0-0.2 10 ^3/uL Nucleated Red Blood Cells 0.0 % Sodium Level 140 136-145 mmol/L Potassium Level 4.6 3.5-5.1 mmol/L Chloride Level 100 98-107 mmol/L Carbon Dioxide Level 25 20-31 mmol/L Anion Gap 15 5-15 Blood Urea Nitrogen 64 H 9-23 mg/dL Creatinine 10.06 *H 0.700-1.30 mg/dL Glomerular Filtration Rate Calc 6 >90 mL/min BUN/Creatinine Ratio 6.4 L 10.0-20.0 Serum Glucose 98 74-106 mg/dL Calcium Level 7.8 L 8.7-10.4 mg/dL Phosphorus Level 5.9 H 2.4-5.1 mg/dL Magnesium Level 2.4 1.6-2.6 mg/dL Total Bilirubin 0.2 0.2-1.0 mg/dL Aspartate Amino Transferase (AST) < 8 L 13-40 U/L Alanine Aminotransferase (ALT) < 9 7-40 U/L Alkaline Phosphatase 43 L 46-116 U/L Total Protein 6.5 5.7-8.2 g/dL Albumin 4.0 3.2-4.8 g/dL Triglycerides Level 165 H < 150 mg/dL Cholesterol Level 178 < 200 mg/dL LDL Cholesterol 114 H < 100 mg/dL HDL Cholesterol 38 L 40-59 mg/dL POC Glucose 125 H 70-106 mg/dl Lactic Acid Level 1.9 0.4-2.0 mmol/L Troponin I High Sensitivity 26 </=54 ng/L Test 01/29/25 16:07 01/29/25 15:08 Range/Units Free Thyroxine (T4) Calculated 1.02 0.89-1.76 ng/dL D-Dimer, Quantitative 0.81 H 0.0-0.49 mg/L FEU Hemoglobin A1c 5.3 <5.7 % A1C B-Type Natriuretic Peptide 294.09 0-100 pg/mL Thyroid Stimulating Hormone (TSH) 2.27 0.55-4.78 uIU/mL Assessment Rule out infective endocarditis Chest pain, rule out coronary ischemia [place] HFrEF, NYHA class III Hypertension Dyslipidemia History myocardial infarction End-stage renal disease on hemodialysis History of TIA History of tobacco use Obesity Plan/Recommendation We will continue with the following plan/recommendations (Dr. Grant): Case discussed and reviewed with . Transthoracic echocardiogram was done and reveals an EF of 30% with global hypokinesis. Juvenile Probation Officer reviewed image and there are no findings of any masses or vegetations. Blood cultures drawn and currently pending. Patient does have vague symptoms such as unidentified rash (patient picked at skin and it has scabbed) and one hemorrhage splinter on nail. We will consider a transesophageal echocardiogram if deemed necessary. Given patient's newly diagnosed HFrEF and chest pain, we will offer ischemic workup. In the meantime, initiate guideline directed medical therapy for CHF as renal function permits. Initiate strict intake and output, daily weights, maintain fluid restriction and a low-sodium diet. Continue with single antiplatelet therapy and lipid-lowering agent. Thank you for allowing us to care for this patient. Please call with any questions or concerns. Critical care time spent: 44 minutes This medical document was created using an electronic medical record system with voice recognition software and computerized dictation system. Although this document has been carefully reviewed, there might still be some phonetic and typographical errors. Occasional wrong-word or ``sound-alike substitutions may have occurred due to the inherent limitations of voice recognition software. These areas are purely typographical due to imperfections of the software programs and do not reflect any compromise in the patient's medical care. Please read the chart carefully and recognize, using context, where these substitutions have occurred. Plan discussed with: Patient NYHA Physical activity limitations: Class3(Marked) ordinary (activity causes symtoms) Date of Service: Jan 30, 2025 Billing Provider: TROY FIELDS Cardiology Common Codes: [id number] INP/OBS CARE (High) Cardiology Consultation Codes: [id number] CONSULT <45MIN TROY FIELDS Jan 30, 2025 12:37
--- NOTE | 2025-01-30 13:26 | DVHINCON2 ---
Date of service: Jan 30, [address] Verma Reason for Consultation ESRD History of Present Illness Mr. Person is a 59-year-old male with known history of ESRD on home hemodialysis with primary care provider and arboriculturist outside of the area who was asked by his arboriculturist to get admitted for evaluation of possible endocarditis. Patient was seen in his room and was able to provide adequate history namely that of subacute progression of substernal chest discomfort that is also described as heaviness at times. This is not related necessarily to him getting a dialysis treatment. He also reports lesions on his hands in his toes for which he has seen a assistant media planner. He denies fever. Access is left upper extremity AV fistula. Past Medical History ESRD Hypertension Anemia Prior history of paraplegia, improved with spinal cord stimulator. Past Surgical History Left upper extremity AV fistula creation Allergies: Coded Allergies: Iodine (Verified Allergy, Unknown, 11/13/24) Home Meds Reported Medications Lisinopril (Lisinopril) 20 Mg Tab, 1 TAB PO DAILY 01/29/25 Doxazosin Mesylate (Cardura Xl) 4 Mg Tab, 1 TAB PO DAILY 01/29/25 Tenapanor HCl (Xphozah) 30 Mg Tab, TAB PO 01/29/25 Doxazosin Mesylate (Doxazosin) 4 Mg Tab, 1 TAB PO DAILY 01/29/25 Sevelamer Carbonate (Sevelamer Carbonate) 800 Mg Tab, TAB PO 01/29/25 Buprenorphine (Buprenorphine) 10 Mcg/Hr Dis, 1 PATCH TOP QWEEKLY 01/29/25 Calcium Acetate (Phosphate Bin (Calcium Acetate) 667 Mg Cap, 1 CAP PO TID 01/29/25 Current Medications Current Medications Medications (Trade) Dose Ordered Sig/Leah Route PRN Reason Start Time Stop Time Status Last Admin Albuterol (Ventolin Medneb) 2.5 mg Q4HWA [facility] 01/29/25 18:00 01/30/25 09:20 Ipratropium [place] (Atrovent Medneb) 0.5 mg Q4HWA [facility] 01/29/25 18:00 01/30/25 09:20 Ondansetron HCl (Zofran) 4 mg Q4HP PRN IV NAUSEA / VOMITING 01/29/25 15:45 Hold Acetaminophen (Tylenol Tablet) 650 mg Q6HP PRN PO PAIN SCALE 1-3 OR TEMP>100.4 01/29/25 15:45 01/29/25 16:52 DC Diagnostic Test (Pha) (Accu-Chek Comfort Curve T) 1 strip ACHS 01/29/25 17:00 01/29/25 16:57 DC Insulin Human Regular (InsuLIN R) ACHS SC 01/29/25 17:00 01/29/25 16:57 DC Dextrose 50 ml UD PRN IV Blood Sugar LESS THAN 60 01/29/25 15:45 01/29/25 16:57 DC Hydralazine HCl (Apresoline Injection) 10 mg Q6HP PRN IV SBP>150 01/29/25 15:45 01/29/25 22:53 DC Calcium Acetate (Phoslo Capsule) 667 mg TID PO 01/29/25 22:00 01/30/25 09:11 Lisinopril (Zestril Tablet) 20 mg DAILY PO 01/30/25 10:00 01/29/25 15:58 DC Patient Own Medication 1 patch QWEEKLY TOP 01/29/25 16:00 Patient Own Medication 1 tab DAILY PO 01/30/25 10:00 01/29/25 16:07 DC Doxazosin Mesylate (Cardura Tablet) 4 mg DAILY PO 01/30/25 10:00 01/30/25 12:28 Sevelamer HCl (Renagel) 800 mg TIDWM PO 01/29/25 18:00 01/30/25 12:29 Furosemide (Lasix Injection) 40 mg DAILY IV 01/30/25 10:00 01/30/25 12:29 Aspirin 81 mg DAILY PO 01/30/25 10:00 01/30/25 12:28 Atorvastatin Calcium (Lipitor) 40 mg HS PO 01/29/25 22:00 01/29/25 21:48 Morphine Sulfate 2 mg Q30MP PRN IV FOR CHEST PAIN 01/29/25 16:45 01/30/25 09:12 Acetaminophen (Tylenol Tablet) 650 mg Q6HP PRN PO MILD PAIN (1-3 PAIN SCALE) 01/29/25 16:45 Nitroglycerin (Ntrostat Sublingual) 0.4 mg Q5MINP PRN SL FOR CHEST PAIN 01/29/25 16:45 Ondansetron HCl (Zofran) 4 mg Q4HP PRN IV NAUSEA / VOMITING 01/29/25 16:45 01/29/25 21:21 DC Diagnostic Test (Pha) (Accu-Chek Comfort Curve T) 1 strip ACHS 01/29/25 17:00 01/30/25 12:30 Insulin Human Regular (InsuLIN R) ACHS SC 01/29/25 17:00 Dextrose 50 ml UD PRN IV Blood Sugar LESS THAN 60 01/29/25 17:00 Enoxaparin Sodium (Lovenox) 40 mg DAILY SC 01/29/25 17:00 01/30/25 12:27 Hydralazine HCl (Apresoline Injection) 10 mg Q6HP PRN IV SBP>150 01/29/25 23:00 01/29/25 23:43 Acetaminophen/ Hydrocodone Bitart ([place] 10/325MG Tab) 1 tab Q6HP PRN PO SEVERE PAIN (7-10 PAIN SCALE) 01/30/25 13:15 UNV Lisinopril (Zestril Tablet) 20 mg DAILY PO 01/31/25 10:00 UNV Family History: Cerebrovascular accident (CVA) G8 MOTHER, , Age: 60 years and older G8 FATHER, , Age: 40's - 50 Diabetes mellitus G8 MOTHER, , Age: 60 years and older FH: heart disease G8 MOTHER, , Age: 60 years and older Review of Systems As per history of present illness otherwise all systems are reviewed and are noncontributory. H&P Exam Vital Signs/I&O Vital Sign Date Time Temp Pulse Resp B/P (MAP) Pulse Ox O2 Delivery O2 Flow Rate FiO2 01/30/25 12:29 165/93 01/30/25 12:24 83 18 01/30/25 09:26 100 01/30/25 09:20 Room Air* 0 21 01/30/25 09:00 98.7 98.7 Intake and Output 01/29/25 01/30/25 19:00 07:00 Intake Total 0 ml Balance 0 ml Intake Oral 0 ml # Voids 1 Physical Exam Gen: nad heent: nc/at, mmm lungs: cta anteriorly cvs: no rub abd: soft, bowel sounds audible ext: no edema, left upper extremity AV fistula skin: no rash neuro: alert and oriented Labs/Diagnostic Data Labs/Diagnostic Data Laboratory Tests Test 01/30/25 12:36 01/30/25 06:00 01/30/25 05:25 01/29/25 22:36 Range/Units POC Glucose 124 H 125 H 70-106 mg/dl Urine Color Colorless Yellow Urine Clarity Clear Clear Urine pH 7.5 5.0-9.0 Urine Specific [place] 1.006 1.001-1.035 Urine Protein 1+ H Negative Urine Ketones Negative Negative Urine Blood Negative Negative /uL Urine Nitrite Negative Negative Urine Bilirubin Negative Negative Urine Urobilinogen Normal Negative mg/dL Urine Leukocyte Esterase Negative Negative /uL Urine RBC <1 0 - 3 /hpf Urine Microscopic WBC 1 0-3 /HPF Urine Squamous Epithelial Cells None seen <5 /hpf Urine Bacteria None seen None Seen /hpf Urine Glucose 1+ H Normal mg/dL Urine Opiates Screen Neg NEGATIVE Urine Fentanyl Screen Neg NEGATIVE Urine Barbiturates Screen Neg NEGATIVE Urine Phencyclidine Screen Neg NEGATIVE Urine Amphetamines Screen Neg NEGATIVE Urine Benzodiazepines Screen Neg NEGATIVE Urine Cocaine Screen Neg NEGATIVE Urine Cannabinoids Screen Neg NEGATIVE White Blood Count 6.7 4.4-10.8 10^3/uL Red Blood Count 3.17 L 4.5-5.90 10^6/uL Hemoglobin 10.0 L 13.5-17.5 g/dL Hematocrit 29.8 L 41.0-53.0 % Mean Corpuscular Volume 94.0 80.0-100.0 fL Mean Corpuscular Hemoglobin 31.5 28.0-32.0 pg Mean Corpuscular Hemoglobin Concent 33.5 32.0-36.0 g/dL Red Cell Distribution Width 13.9 11.8-14.3 % Platelet Count 192 140-450 10^3/uL Mean Platelet Volume 7.9 6.9-10.8 fL Neutrophils (%) (Auto) 79.0 37.0-80.0 % Lymphocytes (%) (Auto) 10.7 10.0-50.0 % Monocytes (%) (Auto) 7.7 0.0-12.0 % Eosinophils (%) (Auto) 2.1 0.0-7.0 % Basophils (%) (Auto) 0.5 0.0-2.0 % Neutrophils # (Auto) 5.3 1.6-8.6 10 ^3/uL Lymphocytes # (Auto) 0.7 0.4-5.4 10 ^3/uL Monocytes # (Auto) 0.5 0-1.3 10 ^3/uL Eosinophils # (Auto) 0.1 0-0.8 10 ^3/uL Basophils # (Auto) 0 0-0.2 10 ^3/uL Nucleated Red Blood Cells 0.0 % Sodium Level 140 136-145 mmol/L Potassium Level 4.6 3.5-5.1 mmol/L Chloride Level 100 98-107 mmol/L Carbon Dioxide Level 25 20-31 mmol/L Anion Gap 15 5-15 Blood Urea Nitrogen 64 H 9-23 mg/dL Creatinine 10.06 *H 0.700-1.30 mg/dL Glomerular Filtration Rate Calc 6 >90 mL/min BUN/Creatinine Ratio 6.4 L 10.0-20.0 Serum Glucose 98 74-106 mg/dL Calcium Level 7.8 L 8.7-10.4 mg/dL Phosphorus Level 5.9 H 2.4-5.1 mg/dL Magnesium Level 2.4 1.6-2.6 mg/dL Total Bilirubin 0.2 0.2-1.0 mg/dL Aspartate Amino Transferase (AST) < 8 L 13-40 U/L Alanine Aminotransferase (ALT) < 9 7-40 U/L Alkaline Phosphatase 43 L 46-116 U/L Total Protein 6.5 5.7-8.2 g/dL Albumin 4.0 3.2-4.8 g/dL Triglycerides Level 165 H < 150 mg/dL Cholesterol Level 178 < 200 mg/dL LDL Cholesterol 114 H < 100 mg/dL HDL Cholesterol 38 L 40-59 mg/dL Test 01/29/25 17:59 01/29/25 17:50 01/29/25 16:07 01/29/25 15:08 Range/Units POC Glucose 79 70-106 mg/dl Lactic Acid Level 1.9 0.4-2.0 mmol/L Troponin I High Sensitivity 26 27 27 </=54 ng/L Free Thyroxine (T4) Calculated 1.02 0.89-1.76 ng/dL White Blood Count 5.5 4.4-10.8 10^3/uL Red Blood Count 3.25 L 4.5-5.90 10^6/uL Hemoglobin 10.3 L 13.5-17.5 g/dL Hematocrit 30.3 L 41.0-53.0 % Mean Corpuscular Volume 93.3 80.0-100.0 fL Mean Corpuscular Hemoglobin 31.8 28.0-32.0 pg Mean Corpuscular Hemoglobin Concent 34.1 32.0-36.0 g/dL Red Cell Distribution Width 13.6 11.8-14.3 % Platelet Count 234 140-450 10^3/uL Mean Platelet Volume 8.2 6.9-10.8 fL Neutrophils (%) (Auto) 65.1 37.0-80.0 % Lymphocytes (%) (Auto) 18.1 10.0-50.0 % Monocytes (%) (Auto) 10.8 0.0-12.0 % Eosinophils (%) (Auto) 5.1 0.0-7.0 % Basophils (%) (Auto) 0.9 0.0-2.0 % Neutrophils # (Auto) 3.6 1.6-8.6 10 ^3/uL Lymphocytes # (Auto) 1.0 0.4-5.4 10 ^3/uL Monocytes # (Auto) 0.6 0-1.3 10 ^3/uL Eosinophils # (Auto) 0.3 0-0.8 10 ^3/uL Basophils # (Auto) 0.1 0-0.2 10 ^3/uL Nucleated Red Blood Cells 0.2 % D-Dimer, Quantitative 0.81 H 0.0-0.49 mg/L FEU Sodium Level 138 136-145 mmol/L Potassium Level 5.1 3.5-5.1 mmol/L Chloride Level 97 L 98-107 mmol/L Carbon Dioxide Level 29 20-31 mmol/L Anion Gap 12 5-15 Blood Urea Nitrogen 60 H 9-23 mg/dL Creatinine 9.37 H 0.700-1.30 mg/dL Glomerular Filtration Rate Calc 6 >90 mL/min BUN/Creatinine Ratio 6.4 L 10.0-20.0 Serum Glucose 96 74-106 mg/dL Hemoglobin A1c 5.3 <5.7 % A1C Calcium Level 8.0 L 8.7-10.4 mg/dL Magnesium Level 2.5 1.6-2.6 mg/dL B-Type Natriuretic Peptide 294.09 0-100 pg/mL Thyroid Stimulating Hormone (TSH) 2.27 0.55-4.78 uIU/mL Assessment IMP: 1) ESRD on home hemodialysis, primarily arboriculturist, and PCP outside the area. 2) chest pain 3) reported outpatient concern for endocarditis 4) hypertension 5) anemia REC: - we will continue with maintenance hemodialysis as inpatient. - he is currently euvolemic, his electrolytes and acid-base status are within acceptable limits. - we will follow up on culture data. - discussed plan of care from Nephrology perspective with Jeromy. Thank you for the consultation. Plan discussed with: Patient, Spouse PREMA WERNER MD Jan 30, 2025 13:26
--- NOTE | 2025-01-30 15:19 | DVHSR ---
APPROVED REPORT EXAM: Two-dimensional and M-mode echocardiogram with Doppler, color Doppler and Optison. Blood Pressure: 141/84 mmHg INDICATION Chest Pain endocarditis Contrast Details Indication: Rule out thrombus Amount Used: 1ml RISK FACTORS Height: 66, Weight: 184 DIMENSIONS LVDd 5.6 (3.8-5.7cm) LA (2D) 5.0 (1.9-4.0cm) Aortic Root 2.9 (2.0-3.7cm) LVDs 5.2 (2.5-4.0cm) LA (MM) (1.9-4.0cm) Aortic Cusp Exc 1.9 (1.5-2.0cm) EF (%) 30.0 (55-70%) Rt. Atrium 4.0 (1.9-4.0cm) Asc. Aorta 3.2 cm IVSd 1.0 (0.7-1.1cm) RV (D) (1.8-2.4cm) PWd 0.9 (0.7-1.1cm) Mitral Valve Mitral Mitral Stenosis E wave 0.79m/s MV Mean GR. mmHg A wave 1.22m/s MV Peak GR. 122mmHg E/A ratio 0.6 2D MVA cm2 DECEL Time 161ms PRESS 1/2 Time ms Aortic Valve Aortic Valve Aortic Stenosis V1 0.97m/s AO Mean GR. 7mmHg V2 1.66m/s AO Peak GR. 11mmHg LVOT Diameter 2.2 (1.8-2.4cm) Doppler ROBER 2.22cm2 Pulmonic Valve V2 1.30m/s Tricuspid Valve TR Velocity 2.73m/s RVSP 35mmHg Conclusion Sinus rhythm. Left atrial enlargement. Valves appear to be structurally normal. Left ventricular function is diminished. EF is about 30% with global hypokinesis. Contrast ECHO confirms ejection fraction Dopplers unremarkable. No pericardial effusion masses or vegetations.
[2025-01-30] MEDS: HYDROcodone-ACET 10/325MG TAB PO PRN (17:13)
[2025-01-30] MEDS: LISINOPRIL 20 MG TAB PO ONE (17:14)
[2025-01-30] MEDS: CARVEDILOL 3.125 MG TAB PO SCH (21:55)
[2025-01-31] VITALS (17 sets, daily range): BP systolic 121–135; BP diastolic 70–80; PULSE 69–105; RESP 16–18; TEMP 97.5–98.2; O2SAT 95–100
[2025-01-31] MEDS: LISINOPRIL 20 MG TAB PO SCH (10:00)
--- NOTE | 2025-01-31 10:40 | DVHPN2 ---
Reviewed: Care Plan, H&P, Labs, Medications, Previous Orders, Radiology Changes from previous H/P or p: No Changes Cardiovascular: Chest Pain Respiratory: Shortness of breath Objective Vitals Vital Signs Date Time Temp Pulse Resp B/P (MAP) Pulse Ox O2 Delivery O2 Flow Rate FiO2 01/31/25 10:26 69 16 100 01/31/25 10:20 Room Air* 0 21 01/31/25 08:57 97.9 122/80 (94) 97.9 Intake/Output Intake and Output 01/31/25 07:00 Intake Total 1055 ml Output Total 900 ml Balance 155 ml Intake Oral 1055 ml Output Urine Total 900 ml # Voids 7 Medications Current Medications Medications Dose Ordered Sig/Leah Route Start Time Stop Time Status Last Admin Dose Admin Albuterol 2.5 mg Q4HWA NEB 01/29/25 18:00 01/31/25 10:20 2.5 MG Ipratropium [place] 0.5 mg Q4HWA NEB 01/29/25 18:00 01/31/25 10:20 0.5 MG Ondansetron HCl 4 mg Q4HP PRN IV 01/29/25 15:45 Hold Calcium Acetate 667 mg TID PO 01/29/25 22:00 01/31/25 08:43 667 MG Patient Own Medication 1 patch QWEEKLY TOP 01/29/25 16:00 Doxazosin Mesylate 4 mg DAILY PO 01/30/25 10:00 01/31/25 08:42 4 MG Sevelamer HCl 800 mg TIDWM PO 01/29/25 18:00 01/31/25 08:42 800 MG Furosemide 40 mg DAILY IV 01/30/25 10:00 01/31/25 08:43 40 MG Aspirin 81 mg DAILY PO 01/30/25 10:00 01/31/25 08:43 81 MG Atorvastatin Calcium 40 mg HS PO 01/29/25 22:00 01/30/25 21:55 40 MG Morphine Sulfate 2 mg Q30MP PRN IV 01/29/25 16:45 01/30/25 09:12 2 MG Acetaminophen 650 mg Q6HP PRN PO 01/29/25 16:45 Nitroglycerin 0.4 mg Q5MINP PRN SL 01/29/25 16:45 Diagnostic Test (Pha) 1 strip ACHS 01/29/25 17:00 01/31/25 06:16 1 STRIP Insulin Human Regular ACHS SC 01/29/25 17:00 Dextrose 50 ml UD PRN IV 01/29/25 17:00 Enoxaparin Sodium 40 mg DAILY SC 01/29/25 17:00 01/31/25 08:43 40 MG Hydralazine HCl 10 mg Q6HP PRN IV 01/29/25 23:00 01/29/25 23:43 10 MG Acetaminophen/ Hydrocodone Bitart 1 tab Q6HP PRN PO 01/30/25 13:15 01/31/25 08:56 1 TAB Lisinopril 20 mg DAILY PO 01/31/25 10:00 Carvedilol 3.125 mg Q12HR PO 01/30/25 22:00 01/30/25 21:55 3.125 MG Laboratory Results Laboratory Tests 01/30/25 05:25 Urinalysis Test 01/30/25 06:00 Urine Color Colorless (Yellow) Urine Clarity Clear (Clear) Urine pH 7.5 (5.0-9.0) Urine Specific [place] 1.006 (1.001-1.035) Urine Protein 1+ (Negative) H Urine Ketones Negative (Negative) Urine Blood Negative /uL (Negative) Urine Nitrite Negative (Negative) Urine Bilirubin Negative (Negative) Urine Urobilinogen Normal mg/dL (Negative) Urine Leukocyte Esterase Negative /uL (Negative) Urine RBC <1 /hpf (0 - 3) Urine Microscopic WBC 1 /HPF (0-3) Urine Squamous Epithelial Cells None seen /hpf (<5) Urine Bacteria None seen /hpf (None Seen) Urine Glucose 1+ mg/dL (Normal) H Microbiology Microbiology Date/Time Source Procedure Growth Status 01/29/25 17:57 Blood Blood Culture - Preliminary NO GROWTH AFTER 24 HOURS OF INCUBATION. Resulted Labs and/or images reviewed: Labs reviewed by me, Image(s) reviewed by me Assessment/Plan Assessment/Plan Chest pain rule out ACS , troponin negative, treatment per ACS protocol, consult for Cardiology ejection fraction 30 percent Acute respiratory failure secondary to fluid overload Uncontrolled diabetes: Insulin sliding scale ESRD on hemodialysis: Consult for Dr. 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 Mckee Group CONS 01/30/25 Transmitted -[place] 12:13 Hydrocodone-Acet PHA 01/30/25 In Process 10/325mg Tab ([place] 13:15 Lisinopril Tablet PHA 01/31/25 In Process (Zestril Tablet) 10:00 Cleanse Wound With ROBERTA 01/30/25 In Process Mild Soap A 14:06 Date of Service: Jan 31, 2025 Billing Provider: JED RATLIFF MD Common Visit Codes: [id number] INP/OBS CARE(HIGH) JED RATLIFF MD Jan 31, 2025 10:40
[2025-01-31] MEDS ORDERED: SODIUM CHL 0.9% 1000 ML BAG XX ONE (12:15)
--- NOTE | 2025-01-31 13:29 | ECG ---
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
--- NOTE | 2025-01-31 14:09 | DVHPN2 ---
Progress Note Date Seen: Jan 31, 2025 Medical Necessity Reason Pt with a Central, PICC or Fol: No Subjective Patient reports: No new complaints Objective vital signs Vital Sign Date Time Temp Pulse Resp B/P (MAP) Pulse Ox O2 Delivery O2 Flow Rate FiO2 01/31/25 10:26 69 16 100 01/31/25 10:20 Room Air* 0 21 01/31/25 08:57 97.9 122/80 (94) 97.9 Total Intake and Output 01/30/25 01/30/25 01/31/25 15:00 23:00 07:00 Intake Total 720 ml 335 ml Output Total 900 ml Balance 720 ml -565 ml medications Current Medications Medications Dose Ordered Sig/Leah Route Start Time Stop Time Status Last Admin Dose Admin Albuterol 2.5 mg Q4HWA [facility] 01/29/25 18:00 01/31/25 10:20 2.5 MG Ipratropium [place] 0.5 mg Q4HWA NEB 01/29/25 18:00 01/31/25 10:20 0.5 MG Ondansetron HCl 4 mg Q4HP PRN IV 01/29/25 15:45 Hold Calcium Acetate 667 mg TID PO 01/29/25 22:00 01/31/25 08:43 667 MG Patient Own Medication 1 patch QWEEKLY TOP 01/29/25 16:00 Doxazosin Mesylate 4 mg DAILY PO 01/30/25 10:00 01/31/25 08:42 4 MG Sevelamer HCl 800 mg TIDWM PO 01/29/25 18:00 01/31/25 12:16 800 MG Furosemide 40 mg DAILY IV 01/30/25 10:00 01/31/25 08:43 40 MG Aspirin 81 mg DAILY PO 01/30/25 10:00 01/31/25 08:43 81 MG Atorvastatin Calcium 40 mg HS PO 01/29/25 22:00 01/30/25 21:55 40 MG Morphine Sulfate 2 mg Q30MP PRN IV 01/29/25 16:45 01/30/25 09:12 2 MG Acetaminophen 650 mg Q6HP PRN PO 01/29/25 16:45 Nitroglycerin 0.4 mg Q5MINP PRN SL 01/29/25 16:45 Diagnostic Test (Pha) 1 strip ACHS 01/29/25 17:00 01/31/25 06:16 1 STRIP Insulin Human Regular ACHS SC 01/29/25 17:00 Dextrose 50 ml UD PRN IV 01/29/25 17:00 Enoxaparin Sodium 40 mg DAILY SC 01/29/25 17:00 01/31/25 08:43 40 MG Hydralazine HCl 10 mg Q6HP PRN IV 01/29/25 23:00 01/29/25 23:43 10 MG Acetaminophen/ Hydrocodone Bitart 1 tab Q6HP PRN PO 01/30/25 13:15 01/31/25 08:56 1 TAB Lisinopril 20 mg DAILY PO 01/31/25 10:00 Carvedilol 3.125 mg Q12HR PO 01/30/25 22:00 01/30/25 21:55 3.125 MG Examination Gen: Appears stated age, NAD Lungs: Bilateral air entry, no rales Heart: RRR, normal S1 and S2 Ext: no edema, left upper extremity AV fistula Neuro: Alert and oriented x 4 laboratory and microbiology Laboratory Tests 01/30/25 05:25 Test 01/30/25 05:25 Range/Units Serum Glucose 98 74-106 mg/dL Microbiology Date/Time Source Procedure Growth Status 01/29/25 17:57 Blood Blood Culture - Preliminary NO GROWTH AFTER 24 HOURS OF INCUBATION. 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 2) chest pain 3) reported outpatient concern for endocarditis 4) hypertension 5) anemia REC: - HD tentatively 01/31 - Will continue with maintenance hemodialysis as inpatient. - Strict I&Os - Blood pressure control - Will continue to follow Plan discussed with: Patient, Spouse ERICA THEODORE LIA Jan 31, 2025 14:09
[2025-01-31] MEDS: ENOXAPARIN SOD 40 MG/0.4 ML SYRINGE SC ONE (17:08)
[2025-01-31] MEDS: IPRATROPIUM BROM 0.5 MG/2.5ML INH SOL ONE ×3 (17:09→17:11)
[2025-01-31] MEDS: ALBUTEROL SULF 2.5 MG/0.5ML(0.5%) NEB SOLN ONE ×3 (17:09→17:11)
[2025-01-31] MEDS: hydrALAZINE HCL 20 MG/ML VL ONE (17:09)
[2025-01-31] MEDS: CALCIUM ACETATE 667 MG CAP ONE ×2 (17:09→17:11)
[2025-01-31] MEDS: OPTISON 3ml Vial for INJ IV ONE (17:10)
[2025-01-31] MEDS: MORPHINE SULFATE 4 MG/ML SYR/VIAL ONE (17:11)
[2025-01-31 17:13] LABS: Sodium 138 mmol/L (136-145)
[2025-01-31 17:14] LABS: Anion Gap 16 (5-15); Carbon Dioxide 25 mmol/L (20-31)
[2025-01-31 17:19] LABS: BUN/Creatinine Ratio 6.8 (10.0-20.0); Glucose 91 mg/dL (74-106)
[2025-01-31] MEDS: CARVEDILOL 3.125 MG TAB ONE (17:19)
[2025-01-31] MEDS: CALCIUM ACETATE 667 MG CAP PO SCH (17:23)
[2025-01-31 17:29] LABS: Calcium 8.1 mg/dL (8.7-10.4); Chloride 97 mmol/L (98-107)
[2025-01-31 17:31] LABS: Blood Urea Nitrogen 80 mg/dL (9-23); Potassium 5.6 mmol/L (3.5-5.1)
--- NOTE | 2025-01-31 17:34 | DVHPN2 ---
Consult Progress Note Subjective Other Systems: Patient in normal sinus rhythm on cafeteria monitor Objective vital signs Vital Sign Date Time Temp Pulse Resp B/P (MAP) Pulse Ox O2 Delivery O2 Flow Rate FiO2 01/31/25 16:51 97.6 85 18 135/75 (95) 99 97.6 01/31/25 14:40 Room Air* 0 21 Total Intake and Output 01/30/25 01/30/25 01/31/25 15:00 23:00 07:00 Intake Total 720 ml 335 ml Output Total 900 ml Balance 720 ml -565 ml medications Current Medications Medications Dose Ordered Sig/Leah Route Start Time Stop Time Status Last Admin Dose Admin Albuterol 2.5 mg Q4HWA NEB 01/29/25 18:00 01/31/25 14:40 2.5 MG Ipratropium [place] 0.5 mg Q4HWA NEB 01/29/25 18:00 01/31/25 14:40 0.5 MG Ondansetron HCl 4 mg Q4HP PRN IV 01/29/25 15:45 Hold Patient Own Medication 1 patch QWEEKLY TOP 01/29/25 16:00 Doxazosin Mesylate 4 mg DAILY PO 01/30/25 10:00 01/31/25 08:42 4 MG Sevelamer HCl 800 mg TIDWM PO 01/29/25 18:00 01/31/25 17:23 800 MG Furosemide 40 mg DAILY IV 01/30/25 10:00 01/31/25 08:43 40 MG Aspirin 81 mg DAILY PO 01/30/25 10:00 01/31/25 08:43 81 MG Atorvastatin Calcium 40 mg HS PO 01/29/25 22:00 01/30/25 21:55 40 MG Morphine Sulfate 2 mg Q30MP PRN IV 01/29/25 16:45 01/30/25 09:12 2 MG Acetaminophen 650 mg Q6HP PRN PO 01/29/25 16:45 Nitroglycerin 0.4 mg Q5MINP PRN SL 01/29/25 16:45 Diagnostic Test (Pha) 1 strip ACHS 01/29/25 17:00 01/31/25 06:16 1 STRIP Insulin Human Regular ACHS SC 01/29/25 17:00 Dextrose 50 ml UD PRN IV 01/29/25 17:00 Enoxaparin Sodium 40 mg DAILY SC 01/29/25 17:00 01/31/25 08:43 40 MG Hydralazine HCl 10 mg Q6HP PRN IV 01/29/25 23:00 01/29/25 23:43 10 MG Acetaminophen/ Hydrocodone Bitart 1 tab Q6HP PRN PO 01/30/25 13:15 01/31/25 08:56 1 TAB Lisinopril 20 mg DAILY PO 01/31/25 10:00 Carvedilol 3.125 mg Q12HR PO 01/30/25 22:00 01/30/25 21:55 3.125 MG Calcium Acetate 667 mg TID PO 01/31/25 18:00 01/31/25 17:23 667 MG Examination: GENERAL:Normal, LUNGS:Normal, CVS:Normal, NEURO:Normal laboratory and microbiology Laboratory Tests 01/31/25 16:40 01/30/25 05:25 Test 01/31/25 16:40 Range/Units Serum Glucose 91 74-106 mg/dL Problem List/Assessment/Plan Problem List/Assessment/Plan Rule out infective endocarditis Chest pain, rule out coronary ischemia [place] HFrEF, NYHA class III Hypertension Dyslipidemia History myocardial infarction End-stage renal disease on hemodialysis History of TIA History of tobacco use Obesity Plan/Recommendations (Dr. Grant): Case discussed and reviewed with . Transthoracic echocardiogram was done and reveals an EF of 30% with global hypokinesis. Exercise Equipment Specialist reviewed image and there are no findings of any masses or vegetations. Blood cultures drawn and preliminary findings are negative at this time. Patient does have vague symptoms such as unidentified rash (patient picked at skin and it has scabbed) and one hemorrhage splinter on nail. We still have to rule out culture-negative endocarditis, therefore patient will be offered a transesophageal echocardiogram to rule out infective endocarditis. Plan for KALI on 02/03/2025 if patient agrees. Given patient's newly diagnosed HFrEF and chest pain, the patient was offered ischemic workup with a nuclear stress test. The patient reports he is unable to complete a treadmill stress test given back surgery and would like to proceed with a nuclear stress test. We will schedule the patient at soonest availability on 02/01/2025. In the meantime, initiate guideline directed medical therapy for CHF as renal function permits. Initiate strict intake and output, daily weights, maintain fluid restriction and a low-sodium diet. Continue with single antiplatelet therapy and lipid-lowering agent. Thank you for allowing us to care for this patient. Please call with any questions or concerns. This medical document was created using an electronic medical record system with voice recognition software and computerized dictation system. Although this document has been carefully reviewed, there might still be some phonetic and typographical errors. Occasional wrong-word or ``sound-alike substitutions may have occurred due to the inherent limitations of voice recognition software. These areas are purely typographical due to imperfections of the software programs and do not reflect any compromise in the patient's medical care. Please read the chart carefully and recognize, using context, where these substitutions have occurred. Plan discussed with: Patient, Spouse Date of Service: Jan 31, 2025 Billing Provider: TROY FIELDS Common Visit Codes: [id number] INP/OBS CARE(HIGH) TROY FIELDS Jan 31, 2025 17:34
[2025-01-31] MEDS: HYDROcodone-ACET 10/325MG TAB ONE (17:50)
[2025-01-31] MEDS: SODIUM ZIRCONIUM CYCL 10 GM PAK PO ONE (18:00)
[2025-01-31] MEDS: SODIUM ZIRCONIUM CYCL 10 GM PAK ONE (18:34)
[2025-02-01] VITALS (9 sets, daily range): BP systolic 117–136; BP diastolic 68–84; PULSE 81–95; RESP 16–20; TEMP 97.7–98.1; O2SAT 96–100
[2025-02-01 06:17] LABS: Sodium 136 mmol/L (136-145)
[2025-02-01 06:19] LABS: Anion Gap 16 (5-15); Carbon Dioxide 25 mmol/L (20-31)
[2025-02-01 06:21] LABS: Calcium 7.9 mg/dL (8.7-10.4); Chloride 95 mmol/L (98-107); Potassium 5.3 mmol/L (3.5-5.1)
[2025-02-01 06:24] LABS: BUN/Creatinine Ratio 6.6 (10.0-20.0); Glucose 83 mg/dL (74-106)
[2025-02-01 06:31] LABS: Blood Urea Nitrogen 81 mg/dL (9-23)
[2025-02-01 06:32] LABS: Hematocrit 27.1 % (41.0-53.0); Hemoglobin 9.3 g/dL (13.5-17.5); Mean Corpuscular Hemoglobin 32.0 pg (28.0-32.0); Mean Corpuscular Volume 93.4 fL (80.0-100.0); Nucleated Red Blood Cells % 0.1 %
[2025-02-01 10:25] LABS: Hepatitis B Surface Antigen Negative (Negative)
[2025-02-01 10:47] LABS: Hepatitis C Antibody Negative (Negative)
--- NOTE | 2025-02-01 11:01 | DVHPN2 ---
Progress Note Date Seen: Feb 01, 2025 Medical Necessity Reason Pt with a Central, PICC or Fol: No Subjective Patient reports: No new complaints Other Systems: Patient seen and examined by myself today in follow-up Objective vital signs Vital Sign Date Time Temp Pulse Resp B/P (MAP) Pulse Ox O2 Delivery O2 Flow Rate FiO2 02/01/25 09:50 81 18 97 02/01/25 09:00 97.7 136/84 (101) 97.7 02/01/25 07:56 Room Air* 0 21 Total Intake and Output 01/31/25 01/31/25 02/01/25 15:00 23:00 07:00 Intake Total 1200 ml 475 ml Output Total 1000 ml 1100 ml Balance 200 ml -625 ml medications Current Medications Medications Dose Ordered Sig/Leah Route Start Time Stop Time Status Last Admin Dose Admin Albuterol 2.5 mg Q4HWA [facility] 01/29/25 18:00 02/01/25 09:50 2.5 MG Ipratropium [place] 0.5 mg Q4HWA [facility] 01/29/25 18:00 02/01/25 09:50 0.5 MG Ondansetron HCl 4 mg Q4HP PRN IV 01/29/25 15:45 Hold Patient Own Medication 1 patch QWEEKLY TOP 01/29/25 16:00 Doxazosin Mesylate 4 mg DAILY PO 01/30/25 10:00 02/01/25 08:53 4 MG Sevelamer HCl 800 mg TIDWM PO 01/29/25 18:00 01/31/25 17:23 800 MG Furosemide 40 mg DAILY IV 01/30/25 10:00 02/01/25 08:52 40 MG Aspirin 81 mg DAILY PO 01/30/25 10:00 02/01/25 08:53 81 MG Atorvastatin Calcium 40 mg HS PO 01/29/25 22:00 01/31/25 21:40 40 MG Morphine Sulfate 2 mg Q30MP PRN IV 01/29/25 16:45 01/30/25 09:12 2 MG Acetaminophen 650 mg Q6HP PRN PO 01/29/25 16:45 Nitroglycerin 0.4 mg Q5MINP PRN SL 01/29/25 16:45 Diagnostic Test (Pha) 1 strip ACHS 01/29/25 17:00 01/31/25 06:16 1 STRIP Insulin Human Regular ACHS SC 01/29/25 17:00 Dextrose 50 ml UD PRN IV 01/29/25 17:00 Enoxaparin Sodium 40 mg DAILY SC 01/29/25 17:00 02/01/25 08:52 40 MG Hydralazine HCl 10 mg Q6HP PRN IV 01/29/25 23:00 01/29/25 23:43 10 MG Acetaminophen/ Hydrocodone Bitart 1 tab Q6HP PRN PO 01/30/25 13:15 02/01/25 08:52 1 TAB Lisinopril 20 mg DAILY PO 01/31/25 10:00 Carvedilol 3.125 mg Q12HR PO 01/30/25 22:00 01/31/25 21:40 3.125 MG Calcium Acetate 667 mg TID PO 01/31/25 18:00 01/31/25 21:39 667 MG Examination: LUNGS:Normal, CVS:Normal, MSK:Normal laboratory and microbiology Laboratory Tests 02/01/25 04:48 Test 02/01/25 04:48 Range/Units Serum Glucose 83 74-106 mg/dL Microbiology Date/Time Source Procedure Growth Status 01/29/25 17:57 Blood Blood Culture - Preliminary NO GROWTH AFTER 48 HOURS OF INCUBATION. Resulted Problem List/Assessment/Plan Problem List/Assessment/Plan ESRD on home hemodialysis, out of the area Congestive heart failure, ejection fraction 30% Hypertension Hyperlipidemia Anemia of chronic of chronic kidney disease Recommendations HD today Epogen 91324 subQ 3 times weekly Strict I&Os Resume home medications Renal diet Cardiology consult We will continue to follow up Plan discussed with: Patient NOEMY CUEVAS MD Feb 01, 2025 11:01
--- NOTE | 2025-02-01 11:05 | DVH ---
NUCLEAR MEDICINE VENTILATION/PERFUSION LUNG SCAN. INDICATION: PULMONARY EMBOLISM TECHNIQUE: Following intravenous demonstration of 6 millicuries of technetium 99m MAA, and inhalation of 40 mCi of Tc 99m DTPA scintigrams were obtained in multiple projections of the lungs. FINDINGS: There is normal uptake of radionuclide on both the ventilation and perfusion portions of the examination. No mismatched perfusion defects are demonstrated. Uptake is normally homogeneous. IMPRESSION: Low probability for PE.
--- NOTE | 2025-02-01 11:22 | DVHPN2 ---
Consult Progress Note Date Seen: Feb 01, 2025 Subjective Review of Systems: CVS:Normal, RESPIRATORY:Normal, NEURO:Normal Other Systems: Denies any cardiac symptoms Objective vital signs Vital Sign Date Time Temp Pulse Resp B/P (MAP) Pulse Ox O2 Delivery O2 Flow Rate FiO2 02/01/25 09:50 81 18 97 02/01/25 09:00 97.7 136/84 (101) 97.7 02/01/25 07:56 Room Air* 0 21 Total Intake and Output 01/31/25 01/31/25 02/01/25 15:00 23:00 07:00 Intake Total 1200 ml 475 ml Output Total 1000 ml 1100 ml Balance 200 ml -625 ml medications Current Medications Medications Dose Ordered Sig/Leah Route Start Time Stop Time Status Last Admin Dose Admin Albuterol 2.5 mg Q4HWA NEB 01/29/25 18:00 02/01/25 09:50 2.5 MG Ipratropium [place] 0.5 mg Q4HWA [facility] 01/29/25 18:00 02/01/25 09:50 0.5 MG Ondansetron HCl 4 mg Q4HP PRN IV 01/29/25 15:45 Hold Patient Own Medication 1 patch QWEEKLY TOP 01/29/25 16:00 Doxazosin Mesylate 4 mg DAILY PO 01/30/25 10:00 02/01/25 08:53 4 MG Sevelamer HCl 800 mg TIDWM PO 01/29/25 18:00 01/31/25 17:23 800 MG Furosemide 40 mg DAILY IV 01/30/25 10:00 02/01/25 08:52 40 MG Aspirin 81 mg DAILY PO 01/30/25 10:00 02/01/25 08:53 81 MG Atorvastatin Calcium 40 mg HS PO 01/29/25 22:00 01/31/25 21:40 40 MG Morphine Sulfate 2 mg Q30MP PRN IV 01/29/25 16:45 01/30/25 09:12 2 MG Acetaminophen 650 mg Q6HP PRN PO 01/29/25 16:45 Nitroglycerin 0.4 mg Q5MINP PRN SL 01/29/25 16:45 Diagnostic Test (Pha) 1 strip ACHS 01/29/25 17:00 01/31/25 06:16 1 STRIP Insulin Human Regular ACHS SC 01/29/25 17:00 Dextrose 50 ml UD PRN IV 01/29/25 17:00 Enoxaparin Sodium 40 mg DAILY SC 01/29/25 17:00 02/01/25 08:52 40 MG Hydralazine HCl 10 mg Q6HP PRN IV 01/29/25 23:00 01/29/25 23:43 10 MG Acetaminophen/ Hydrocodone Bitart 1 tab Q6HP PRN PO 01/30/25 13:15 02/01/25 08:52 1 TAB Lisinopril 20 mg DAILY PO 01/31/25 10:00 Carvedilol 3.125 mg Q12HR PO 01/30/25 22:00 01/31/25 21:40 3.125 MG Calcium Acetate 667 mg TID PO 01/31/25 18:00 01/31/25 21:39 667 MG Examination: LUNGS:Normal, CVS:Normal, NEURO:Normal laboratory and microbiology Laboratory Tests 02/01/25 04:48 Test 02/01/25 04:48 Range/Units Serum Glucose 83 74-106 mg/dL Problem List/Assessment/Plan Problem List/Assessment/Plan Chest pain, rule out coronary ischemia (PE ruled out) Rule out infective endocarditis [place] HFrEF, NYHA class III Hypertension Dyslipidemia History myocardial infarction End-stage renal disease on hemodialysis History of TIA History of tobacco use Obesity Plan/Recommendations (Dr. Grant) Transthoracic echocardiogram revealed an EF of 30% with global hypokinesis. Given patient's newly diagnosed HFrEF and chest pain, he was offered ischemic workup with a nuclear stress test scheduled on 02/02/2025. Also scheduled for a transesophageal echocardiogram to rule out infective endocarditis on 02/03/2025. In the meantime, continue guideline directed medical therapy for CHF as renal function permits, strict intake and output, daily weights, maintain fluid restriction, and a low-sodium diet. Continue with single antiplatelet therapy and lipid-lowering agent. Further orders per clinical course. Thank you for allowing us to care for this patient. Please call with any questions or concerns. This medical document was created using an electronic medical record system with voice recognition software and computerized dictation system. Although this document has been carefully reviewed, there might still be some phonetic and typographical errors. Occasional wrong-word or ``sound-alike substitutions may have occurred due to the inherent limitations of voice recognition software. These areas are purely typographical due to imperfections of the software programs and do not reflect any compromise in the patient's medical care. Please read the chart carefully and recognize, using context, where these substitutions have occurred. Plan discussed with: Patient, Other Date of Service: Feb 01, 2025 Billing Provider: NICHOLAS LAWSON Cardiology Common Codes: [id number] HOSP CARE(High NCIHOLAS LAWSON Feb 01, 2025 11:22
--- NOTE | 2025-02-01 12:12 | DVHPN2 ---
Reviewed: Care Plan, H&P, Labs, Medications, Previous Orders, Radiology Changes from previous H/P or p: No Changes Cardiovascular: Chest Pain Respiratory: Shortness of breath Objective Vitals Vital Signs Date Time Temp Pulse Resp B/P (MAP) Pulse Ox O2 Delivery O2 Flow Rate FiO2 02/01/25 10:13 97 Room Air* 0 21 02/01/25 09:50 81 18 02/01/25 09:00 97.7 136/84 (101) 97.7 Intake/Output Intake and Output 02/01/25 07:00 Intake Total 1675 ml Output Total 2100 ml Balance -425 ml Intake Oral 1675 ml Output Urine Total 2100 ml # Voids 4 # Bowel Movements 1 Medications Current Medications Medications Dose Ordered Sig/Leah Route Start Time Stop Time Status Last Admin Dose Admin Albuterol 2.5 mg Q4HWA NEB 01/29/25 18:00 02/01/25 09:50 2.5 MG Ipratropium [place] 0.5 mg Q4HWA NEB 01/29/25 18:00 02/01/25 09:50 0.5 MG Ondansetron HCl 4 mg Q4HP PRN IV 01/29/25 15:45 Hold Patient Own Medication 1 patch QWEEKLY TOP 01/29/25 16:00 Doxazosin Mesylate 4 mg DAILY PO 01/30/25 10:00 02/01/25 08:53 4 MG Sevelamer HCl 800 mg TIDWM PO 01/29/25 18:00 01/31/25 17:23 800 MG Furosemide 40 mg DAILY IV 01/30/25 10:00 02/01/25 08:52 40 MG Aspirin 81 mg DAILY PO 01/30/25 10:00 02/01/25 08:53 81 MG Atorvastatin Calcium 40 mg HS PO 01/29/25 22:00 01/31/25 21:40 40 MG Morphine Sulfate 2 mg Q30MP PRN IV 01/29/25 16:45 01/30/25 09:12 2 MG Acetaminophen 650 mg Q6HP PRN PO 01/29/25 16:45 Nitroglycerin 0.4 mg Q5MINP PRN SL 01/29/25 16:45 Diagnostic Test (Pha) 1 strip ACHS 01/29/25 17:00 01/31/25 06:16 1 STRIP Insulin Human Regular ACHS SC 01/29/25 17:00 Dextrose 50 ml UD PRN IV 01/29/25 17:00 Enoxaparin Sodium 40 mg DAILY SC 01/29/25 17:00 02/01/25 08:52 40 MG Hydralazine HCl 10 mg Q6HP PRN IV 01/29/25 23:00 01/29/25 23:43 10 MG Acetaminophen/ Hydrocodone Bitart 1 tab Q6HP PRN PO 01/30/25 13:15 02/01/25 08:52 1 TAB Lisinopril 20 mg DAILY PO 01/31/25 10:00 Carvedilol 3.125 mg Q12HR PO 01/30/25 22:00 01/31/25 21:40 3.125 MG Calcium Acetate 667 mg TID PO 01/31/25 18:00 01/31/25 21:39 667 MG Laboratory Results Laboratory Tests 02/01/25 04:48 Chemistry Test 01/31/25 16:40 02/01/25 04:48 Calcium Level 8.1 mg/dL (8.7-10.4) L 7.9 mg/dL (8.7-10.4) L Urinalysis Test 01/30/25 06:00 Urine Color Colorless (Yellow) Urine Clarity Clear (Clear) Urine pH 7.5 (5.0-9.0) Urine Specific [place] 1.006 (1.001-1.035) Urine Protein 1+ (Negative) H Urine Ketones Negative (Negative) Urine Blood Negative /uL (Negative) Urine Nitrite Negative (Negative) Urine Bilirubin Negative (Negative) Urine Urobilinogen Normal mg/dL (Negative) Urine Leukocyte Esterase Negative /uL (Negative) Urine RBC <1 /hpf (0 - 3) Urine Microscopic WBC 1 /HPF (0-3) Urine Squamous Epithelial Cells None seen /hpf (<5) Urine Bacteria None seen /hpf (None Seen) Urine Glucose 1+ mg/dL (Normal) H Microbiology Microbiology Date/Time Source Procedure Growth Status 01/29/25 17:57 Blood Blood Culture - Preliminary NO GROWTH AFTER 48 HOURS OF INCUBATION. Resulted Labs and/or images reviewed: Labs reviewed by me, Image(s) reviewed by me Assessment/Plan Assessment/Plan Chest pain rule out ACS , troponin negative, treatment per ACS protocol, consult for Cardiology ejection fraction 30 percent Acute respiratory failure secondary to fluid overload Uncontrolled diabetes: Insulin sliding scale ESRD on hemodialysis: Consult for Dr. 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 public safety officer recommended workup to rule out endocarditis no vegetations by echocardiogram blood cultures negative History of kidney stones History of [place] 2017 TIA 2011 History of left AV fistula History of back surgery on neuro stimulator Patient Scheduled for Cardiolite stress test on 02/02/2025 by Cardiology KALI on 02/03/2025 Time spent 50 minutes Plan discussed with: Patient My Orders Orders - JED RATLIFF MD Procedure Category Date Status Time Calcium Acetate PHA 01/31/25 In Process Capsule (Phos[place] 18:00 Cardiac DIET 02/01/25 Transmitted Diet-2gna,Lofat,Lochol Lunch Date of Service: Feb 01, 2025 Billing Provider: JED RATLIFF MD Common Visit Codes: [id number] INP/OBS CARE(HIGH) JED RATLIFF MD Feb 01, 2025 12:12
--- NOTE | 2025-02-02 08:36 | DVHDS2 ---
Discharge Summary Date of Admission Jan 29, 2025 at 16:43 Date of Discharge: Feb 01, 2025 Admitting Diagnosis Shortness of breath for one month Wounds: None Labs/Diagnostic Data: Laboratory Results Test 02/01/25 04:48 01/31/25 12:36 01/30/25 17:18 01/30/25 06:00 White Blood Count 4.9 10^3/uL (4.4-10.8) Red Blood Count 2.90 10^6/uL (4.5-5.90) Hemoglobin 9.3 g/dL (13.5-17.5) Hematocrit 27.1 % (41.0-53.0) Mean Corpuscular Volume 93.4 fL (80.0-100.0) Mean Corpuscular Hemoglobin 32.0 pg (28.0-32.0) Mean Corpuscular Hemoglobin Concent 34.3 g/dL (32.0-36.0) Red Cell Distribution Width 13.7 % (11.8-14.3) Platelet Count 184 10^3/uL (140-450) Mean Platelet Volume 7.6 fL (6.9-10.8) Neutrophils (%) (Auto) 69.1 % (37.0-80.0) Lymphocytes (%) (Auto) 14.4 % (10.0-50.0) Monocytes (%) (Auto) 9.5 % (0.0-12.0) Eosinophils (%) (Auto) 6.3 % (0.0-7.0) Basophils (%) (Auto) 0.7 % (0.0-2.0) Neutrophils # (Auto) 3.4 10 ^3/uL (1.6-8.6) Lymphocytes # (Auto) 0.7 10 ^3/uL (0.4-5.4) Monocytes # (Auto) 0.5 10 ^3/uL (0-1.3) Eosinophils # (Auto) 0.3 10 ^3/uL (0-0.8) Basophils # (Auto) 0 10 ^3/uL (0-0.2) Nucleated Red Blood Cells 0.1 % Sodium Level 136 mmol/L (136-145) Potassium Level 5.3 mmol/L (3.5-5.1) Chloride Level 95 mmol/L (98-107) Carbon Dioxide Level 25 mmol/L (20-31) Anion Gap 16 (5-15) Blood Urea Nitrogen 81 mg/dL (9-23) Creatinine 12.20 mg/dL (0.700-1.30) Glomerular Filtration Rate Calc 4 mL/min (>90) BUN/Creatinine Ratio 6.6 (10.0-20.0) Serum Glucose 83 mg/dL (74-106) Calcium Level 7.9 mg/dL (8.7-10.4) Hepatitis A IgM Antibody Negative Hepatitis B Surface Antigen Negative (Negative) Hepatitis B Core IgM Antibody Negative (Negative) Hepatitis C Antibody Negative (Negative) POC Glucose 101 mg/dl (70-106) Urine Color Colorless (Yellow) Urine Clarity Clear (Clear) Urine pH 7.5 (5.0-9.0) Urine Specific [place] 1.006 (1.001-1.035) Urine Protein 1+ (Negative) Urine Ketones Negative (Negative) Urine Blood Negative /uL (Negative) Urine Nitrite Negative (Negative) Urine Bilirubin Negative (Negative) Urine Urobilinogen Normal mg/dL (Negative) Urine Leukocyte Esterase Negative /uL (Negative) Urine RBC <1 /hpf (0 - 3) Urine Microscopic WBC 1 /HPF (0-3) Urine Squamous Epithelial Cells None seen /hpf (<5) Urine Bacteria None seen /hpf (None Seen) Urine Glucose 1+ mg/dL (Normal) Urine Opiates Screen Neg (NEGATIVE) Urine Fentanyl Screen Neg (NEGATIVE) Urine Barbiturates Screen Neg (NEGATIVE) Urine Phencyclidine Screen Neg (NEGATIVE) Urine Amphetamines Screen Neg (NEGATIVE) Urine Benzodiazepines Screen Neg (NEGATIVE) Urine Cocaine Screen Neg (NEGATIVE) Urine Cannabinoids Screen Neg (NEGATIVE) Test 01/30/25 05:25 01/29/25 17:50 01/29/25 16:07 01/29/25 15:08 Phosphorus Level 5.9 mg/dL (2.4-5.1) Magnesium Level 2.4 mg/dL (1.6-2.6) Total Bilirubin 0.2 mg/dL (0.2-1.0) Aspartate Amino Transferase (AST) < 8 U/L (13-40) Alanine Aminotransferase (ALT) < 9 U/L (7-40) Alkaline Phosphatase 43 U/L (46-116) Total Protein 6.5 g/dL (5.7-8.2) Albumin 4.0 g/dL (3.2-4.8) Triglycerides Level 165 mg/dL (< 150) Cholesterol Level 178 mg/dL (< 200) LDL Cholesterol 114 mg/dL (< 100) HDL Cholesterol 38 mg/dL (40-59) Lactic Acid Level 1.9 mmol/L (0.4-2.0) Troponin I High Sensitivity 26 ng/L (</=54) Free Thyroxine (T4) Calculated 1.02 ng/dL (0.89-1.76) D-Dimer, Quantitative 0.81 mg/L FEU (0.0-0.49) Hemoglobin A1c 5.3 % A1C (<5.7) B-Type Natriuretic Peptide 294.09 pg/mL (0-100) Thyroid Stimulating Hormone (TSH) 2.27 uIU/mL (0.55-4.78) Other Laboratory Tests 02/01/25 04:48 Brief Hx & Hospital Course: 59-year-old male with significant past medical history history including ESRD on hemodialysis at home 5 times a week history of kidney stones history of [place] 2017 TIA 2011 history of back surgery on neurostimulator diabetes on insulin came in complaining of shortness of breaths for one month. Also complained of chest pain troponin was negative treated per ACS protocol cardiology consult by Dr. Grant. Ejection fraction 30 percent advised Cardiolite stress test and KALI but patient left AMA prior to procedures. Seen by lining feller Dr. Mckee the patient has had some rash in the right hand and right foot and dermatology recommended workup to rule out endocarditis. Blood cultures negative no vegetations by echocardiogram While awaiting further workup, patient decided to leave AMA and left AMA. [place] complications including possible explained to the patient and he verbalized understanding. Condition satisfactory at the time of leaving AMA per nurse's note Consults/Reason for consult Nephrology Cardiology Operations or Procedures Hemodialysis Condition at Discharge: Fair Final Diagnosis/Problems List Chest pain rule out ACS , troponin negative, treatment per ACS protocol, consult for Cardiology ejection fraction 30 percent Acute respiratory failure secondary to fluid overload Uncontrolled diabetes: Insulin sliding scale ESRD on hemodialysis: Consult for Dr. 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 recommended workup to rule out endocarditis no vegetations by echocardiogram blood cultures negative History of kidney stones History of [place] 2018 TIA 2011 History of left AV fistula History of back surgery on neuro stimulator Patient Scheduled for Cardiolite stress test on 02/02/2025 by Cardiology KALI on 02/03/2025 Discharge Disposition: AMA Discharge Instruct/Medications Activity comment: Not applicable patient left Follow Up/Referral: Not applicable patient left AMA Medications: Not applicable patient left Scheduled Buprenorphine (Buprenorphine), 1 PATCH TOP QWEEKLY, (Reported) Calcium Acetate (Phosphate Bin (Calcium Acetate), 1 CAP PO TID, (Reported) Doxazosin Mesylate (Doxazosin), 1 TAB PO DAILY, (Reported) Doxazosin Mesylate (Cardura Xl), 1 TAB PO DAILY, (Reported) Lisinopril (Lisinopril), 1 TAB PO DAILY, (Reported) Miscellaneous Medications Sevelamer Carbonate (Sevelamer Carbonate), TAB PO, (Reported) Tenapanor HCl (Xphozah), TAB PO, (Reported) 39 (Time taken for discharge summary 39 minutes) Discharge Statement: "Patient was advised to return to the ER or call 911 if any headaches, dizziness, shortness of breath, chest pain, abdominal pain, bleeding, fevers, or worsening of medical condition. Patient was counseled about treatment plan, medications, possible side effects, patientverbalized understanding. All questions were answered to the best of my ability. This discharge took greater then 30 minutes in planning, reviewing documentation, counseling the patient, and discussing with other team members." ASSESSMENT ASSESSMENT Hospital Course Left AMA Assessment Date of Service: Feb 02, 2025 Billing Provider: JED RATLIFF MD Common Visit Codes: [id number] INP/OBS CARE(HIGH) JED RATLIFF MD Feb 02, 2025 08:36
--- NOTE | 2025-02-02 10:57 | ECG ---
[facility] Test Date: 2025-01-30 Test Time: 09:08:30 Pat Name: EUGENE LEON Department: Respiratoy Room: [facility]1T A Gender: M Sound Effects Manager: JAMEEL : 1965 Requested By: JED RATLIFF Order Number: [id number] Reading MD: Measurements Intervals [place] Rate: 84 P: 49 MS: 162 QRS: 31 QRSD: 95 T: 60 QT: 411 QTc: 486 Interpretive Statements Sinus rhythm Borderline ST elevation, anterior leads Borderline prolonged QT interval Please click the below link to view image of tracing.
== END 2025-02-01 13:09 | disposition left against medical advice (07) | DRG 291 ==
LOC: ER 14:36 → OVERFLOW 16:43 → TELE-WESTW 22:10
PROVIDERS: ADMIT Family Medicine; ATTEND Family Medicine
DX: I13.2 Hypertensive heart and chronic kidney disease with heart failure and with stage 5 chronic kidney disease, or end stage renal disease (principal); I50.21 Acute systolic (congestive) heart failure; J96.00 Acute respiratory failure, unspecified whether with hypoxia or hypercapnia; N18.6 End stage renal disease; I24.9 Acute ischemic heart disease, unspecified; G82.20 Paraplegia, unspecified; E11.22 Type 2 diabetes mellitus with diabetic chronic kidney disease; D64.9 Anemia, unspecified; Z99.2 Dependence on renal dialysis; E66.9 Obesity, unspecified; E78.5 Hyperlipidemia, unspecified; L98.9 Disorder of the skin and subcutaneous tissue, unspecified; I25.2 Old myocardial infarction; Z79.899 Other long term (current) drug therapy; Z91.041 Radiographic dye allergy status; Z87.891 Personal history of nicotine dependence; Z87.442 Personal history of urinary calculi; Z86.73 Personal history of transient ischemic attack (TIA), and cerebral infarction without residual deficits; Z53.29 Procedure and treatment not carried out because of patient's decision for other reasons; Z82.3 Family history of stroke; Z83.3 Family history of diabetes mellitus; Z82.49 Family history of ischemic heart disease and other diseases of the circulatory system; Z79.4 Long term (current) use of insulin
CPT/HCPCS: 36415; 71045; 78582; 80048; 80053; 80061; 80074; 80307; 81001; 82962; 83036; 83605; 83735; 83880; 84100; 84439; 84443; 84484; 85025; 85379; 87040; 87340; 93005; 93306; 94640; 99291; G0378; Q9956